=== PATIENT | female | born 1980 | race Caucasian/White ===

== ENCOUNTER 2019-10-23 19:14 | Emergency (ER) | payer OTHER, SELFPAY ==
[2019-10-23] MEDS: NALOXONE HCL INJ 2 MG/2 ML AMP IV PUSH (19:15)
[2019-10-23 19:24] VITALS: BP 121/88; PULSE 115; RESP 20; TEMP 36.1; O2SAT 100
[2019-10-23 19:29] VITALS: RESP 20
--- NOTE | 2019-10-23 19:48 | ED.OVERDOSE ---
HPI - Overdose General Chief Complaint: Overdose Stated Complaint: overdose Source: patient Mode of arrival: wheelchair Limitations: intoxication History of Present Illness HPI Narrative: this 39-year-old female was brought in unresponsive by her boyfriend who found her minimally responsive after having sniffed fentanyl. No history available from him. Upon arrrival the pt. was immediately brought to an E.D. room and administered Narcan 2 mg resulting in patient awakening and shivering. Pt. reports first use of opiates in a very long time. She was using alone, found by her boyfriend. She is unaware of how this obtained a laceration on her left forearm. No past medical history is available. Related Data Allergies Allergy/AdvReac Type Severity Reaction Status Date / Time No Known Allergies Allergy Uncoded 10/22/19 07:18 Review of Systems Constitutional: Constitutional: Denies chills and Denies fever(s) Neurologic: Denies focal weakness and Denies numbness PMFSH Past Medical History Medical History (Updated 10/24/19 @ 05:31 by Nagi Winn MD) Hepatitis C Social History Social History (Updated 10/24/19 @ 05:38 by Nagi Winn MD) Substance use: current Substance use type: marijuana and heroin Other substance usage details: regular use of marijuana, Reports rare use of heroin. Exam Const: Other: Patient shivering, curled up in a ball. HENMT: Head: normal to inspection, no contusions and no hematomas Eyes: Conjunctivae: conjunctivae normal EOM: EOMs intact bilaterally Back/Spine/Pelvis: Back: no CVA tenderness Skin: Other: Left posterior proximal forearm laceration, 4 cm, extends to but not through the muscle sheath, Neuro: General: patient oriented x3 and no focal motor deficits Speech: normal speech Gait exam (Neuro): Normal gait present Sensory Exam: normal sensation Course Course Emergency Course: Pt. remained alert and oriented throughout 3 hours of observation. Pt. did not want to wait for the remainder of her lab work; she signed out AMA. Given verbal wound care instructions and script for Narcan. Vital Signs Vital signs: Vital Signs Temperature 36.1 C L 10/23/19 19:24 Pulse Rate 115 H 10/23/19 19:24 Respiratory Rate 20 10/23/19 19:24 Blood Pressure 121/88 10/23/19 19:24 Pulse Oximetry 100 10/23/19 19:24 Temperature 36.1 C L 10/23/19 19:24 Pulse Rate 115 H 10/23/19 19:24 Respiratory Rate 16 10/23/19 23:02 Blood Pressure 121/88 10/23/19 19:24 Pulse Oximetry 100 10/23/19 23:02 Procedures Laceration Laceration 1: Date: 10/23/19 Time: 22:00 Site: upper extremity Side (If applicable): left Description: stellate and clean Depth: simple, single layer Local Anesthetic: lidocaine 1% and with epi Amount of anesthesia used (mL): 4 Pre-repair: wound explored ====== Skin Level ====== Skin layer closed with: prolene Size (cm): 3-0 Number of sutures: 11 Technique: running ====== Subcutaneous Layer ====== ====== Muscle Layer ====== ====== Tendon Layer ====== MDM - Overdose MDM Narrative Medical decision making narrative: Pt. had no intent to hurt herself, this was an accidental overdose. Differential Diagnosis Differential diagnosis: Likely suicide attempt by multiple drug overdose, poisoning by opiate or related narcotic, drug overdose, acetaminophen overdose and accidental drug ingestion Lab Data Attestation: I reviewed the patient's lab results. Result diagrams: 10/23/19 20:20 10/23/19 20:20 Labs: Lab Results 10/23/19 10/23/19 10/23/19 Range/Units 20:20 20:20 20:20 WBC 7.5 (4.8-10.8) K/mm3 RBC 4.55 (4.20-5.40) M/mm3 Hgb 15.2 H (12.0-15.0) g/dL Hct 44.5 (35.0-49.0) % MCV 97.8 (78.0-102.0) fL MCH 33.4 H (27.0-31.0) pg MCHC 34.2 (32.0-36.0) g/dL RDW 13.2 (11.6-14.
[2019-10-23] MEDS: LIDO 1%/EPINEPHRINE 1:100,000 20 ML VIAL (20:03)
[2019-10-23 20:33] LABS: Basophils Absolute Auto 0.03 K/mm3 (0.00-0.10); Basophils Percent Auto 0.4 % (0.0-1.0); Eosinophils Absolute Auto 0.19 K/mm3 (0.02-0.50); Eosinophils Percent Auto 2.5 % (1.0-6.0); Hematocrit 44.5 % (35.0-49.0); Hemoglobin 15.2 g/dL (12.0-15.0); Immature Granulocyte Absolute 0.02 K/mm3 (0.00-0.00); Immature Granulocyte Percent A 0.3 % (0.0-0.0); Lymphocytes Absolute Auto 2.03 K/mm3 (1.10-4.50); Lymphocytes Percent Auto 26.9 % (18.0-42.0); Mean Corpuscular HGB Conc 34.2 g/dL (32.0-36.0); Mean Corpuscular Hemoglobin 33.4 pg (27.0-31.0); Mean Corpuscular Volume 97.8 fL (78.0-102.0); Mean Platelet Volume 9.1 fl (9.2-11.8); Neutrophils Absolute Auto 4.7 K/mm3 (1.7-7.2); Neutrophils Percent Auto 61.9 % (50.0-70.0); Platelet Count Result 198 K/mm3 (150-420); Red Blood Count 4.55 M/mm3 (4.20-5.40); Red Cell Distribution Width 13.2 % (11.6-14.4); White Blood Count 7.5 K/mm3 (4.8-10.8)
[2019-10-23 20:49] LABS: Alanine Aminotransferase 27 U/L (14-59); Albumin Level 3.7 g/dL (3.4-5.0); Alkaline Phosphatase 59 U/L (46-116); Anion Gap 11.9 mmol/L (7-16); Aspartate Amino Transferase 26 U/L (15-37); Bilirubin,Total 0.3 mg/dL (0.00-1.00); Blood Urea Nitrogen 9 mg/dL (7-18); Calcium 9.5 mg/dL (8.5-10.1); Carbon Dioxide 28 mmol/L (21-32); Chloride 105 mmol/L (98-108); Estimated CRCL calculation 46 ml/min; Estimated Glomerular Filt Rate 47; Glucose 78 mg/dL (70-99); Osmolality Calculated 289 mOsm/kg (285-295); Potassium 3.9 mmol/L (3.5-5.1); Sodium 141 mmol/L (136-145); Total Protein 7.7 g/dL (6.4-8.2)
[2019-10-23 20:50] LABS: Acetaminophen 0 ug/mL (10-30); Ethanol < 3 mg/dL (0-6); Salicylate 1.4 mg/dL (2.8-20.0)
[2019-10-23 23:02] VITALS: RESP 16; O2SAT 100
== END 2019-10-23 21:45 | disposition left against medical advice (07) ==
LOC: CHSED 19:16
PROVIDERS: Emergency Provider Family Medicine
DX: T40.2X1A Poisoning by other opioids, accidental (unintentional), initial encounter (principal); S51.812A Laceration without foreign body of left forearm, initial encounter
CPT/HCPCS: 12002; 36415; 80053; 80307; 85025; 96374; 99283; 99284; J2310

== ENCOUNTER 2020-10-13 00:19 | Emergency (ER) | payer OTHER, SELFPAY ==
[2020-10-13 00:30] VITALS: BP 155/85; PULSE 87; RESP 20; TEMP 36.9; O2SAT 100
--- NOTE | 2020-10-13 00:36 | ED.SKABFB ---
HPI - Skin/Abscess/Foreign Bdy General Chief complaint: Skin/Abscess/Foreign Body Stated complaint: spider bite Source: patient Mode of arrival: ambulatory Limitations: no limitations History of Present Illness HPI narrative: this is a 40-year-old female presents with a insect bite to the forehead with swelling has a central punctate lesion tender with no fever chills occurred about 4 days ago and the swelling has persisted, not sure if it was a spider, no fever chills no nausea vomiting no shortness of breath no abdominal pain no nausea vomiting. MD complaint: insect bite/sting Onset (ago): day(s) Tetanus up to date: no Location: head Severity: moderate Severity scale (1-10): 6 Related Data Allergies Allergy/AdvReac Type Severity Reaction Status Date / Time No Known Allergies Allergy Uncoded 10/22/19 07:18 Review of Systems Review of Systems: All systems reviewed & are unremarkable except as noted in HPI and below PMFSH Past Medical History Medical History Hepatitis C Social History Social History Substance use: current Substance use type: marijuana and heroin Other substance usage details: regular use of marijuana, Reports rare use of heroin. Exam Const: General: no acute distress and alert Orientation/consciousness: patient oriented x3 HENMT: Head: normal to inspection Eyes: Conjunctivae: conjunctivae normal Pupils: Equal, round and reactive pupils present Neck: Neck: normal visual inspection, no lymphadenopathy and no meningeal signs Chest: Chest palpation & inspection: normal inspection of the chest Resp: Effort & Inspection: normal respiratory effort Auscultation: clear to auscultation bilaterally Cardio: Rate: regular rate Rhythm: regular rhythm GI: GI Palp: Yes Soft to palpation Percussion: Yes normal to percussion Skin: Other: Swelling to the frontal forehead with a central punctate lesion Neuro: General: patient oriented x3 and moves all extremities Extrem: General: normal to inspection and no pedal edema Psych: Mental Status: mental status grossly normal Course Course Emergency Course: patient comfortable received 800 of ibuprofen along with some Augmentin 1 dose and updated her tetanus, send medication to her pharmacy. Critical Care Time Critical Care Time Critical Care Time: No Discharge Plan Discharge Clinical Impression: Insect bites, Cellulitis Patient Disposition: Home, Self-Care Condition: Stable Instructions: Antibiotic Form, Cellulitis (ED), Insect Bite or Sting (ED) Additional Instructions: take medicine as prescribed and follow-up with primary care physician if symptoms persist or worsen. take Motrin for pain and inflammation approximately 600mg b.i.d. with meals. Prescriptions: New amoxicillin-pot clavulanate [Augmentin] 875-125 mg tablet 1 tablet PO Q12H Qty: 20 RF: 0 No Action naloxone 4 mg/actuation spray,non-aerosol 4 mg NASAL Q2-3M PRN (Reason: opioid overdose) Qty: 2 RF: 5 Follow-up/Referrals: UNKNOWN,DOCTOR [Primary Care Provider] - Time of Disposition: 00:41
[2020-10-13] MEDS: TETANUS,DIPHTHERIA,AC PERTUSSIS ADULT 0.5 ML (ADACEL) IM (00:42)
[2020-10-13] MEDS: IBUPROFEN 400 MG TABLET 800 MG PO (00:43)
[2020-10-13] MEDS: AMOXICILLIN/CLAVULANATE K 875-125 MG TAB 1 TABLET PO (00:43)
[2020-10-13 00:46] VITALS: BP 155/85; PULSE 87; RESP 20; TEMP 36.9; O2SAT 100
== END 2020-10-13 01:00 | disposition home or self-care (01) ==
PROVIDERS: Emergency Provider Emergency Medicine
DX: L03.90 Cellulitis, unspecified (principal); W57.XXXA Bitten or stung by nonvenomous insect and other nonvenomous arthropods, initial encounter
CPT/HCPCS: 90471; 90715; 99283; A9270

== ENCOUNTER 2020-12-05 08:21 | Emergency (ER) | payer OTHER, SELFPAY ==
[2020-12-05 08:25] VITALS: BP 130/95; PULSE 88; RESP 20; TEMP 36.6; O2SAT 97
--- NOTE | 2020-12-05 08:31 | ED.WOUNDLAC ---
HPI - Wound/Laceration General Chief Complaint: Skin/Abscess/Foreign Body Stated Complaint: SPIDER BITE Time Seen by Provider: 12/05/20 08:30 Source: patient Mode of arrival: ambulatory Limitations: no limitations History of Present Illness HPI narrative: Patient comes in with a area of cellulitis on her left upper lip which is the size of a quarter. She says this started getting red and warm 2 days ago. This has red tender and warm for the last two days ongoing. She is worried she got bit by a spider. She denies fever and chills. She has not tried yet tried any medicine at home. She has had mid ongoing pain at the site of the cellulitis. Related Data Allergies Allergy/AdvReac Type Severity Reaction Status Date / Time No Known Allergies Allergy Uncoded 10/22/19 07:18 Review of Systems Constitutional: Constitutional: Reports no additional constitutional complaints Eyes: Eyes: Reports no additional eye complaints ENT: Reports system reviewed and no additional complaints, except as documented Cardiovascular: Cardiovascular: Reports no additional cardiovascular complaints Respiratory: Respiratory: Reports no additional respiratory complaints Gastrointestinal: Gastrointestinal: Reports no additional gastrointestinal complaints Genitourinary: Genitourinary: Reports no additional female genitourinary complaints Musculoskeletal: Musculoskeletal: Reports no additional musculoskeletal complaints Integumentary/Breasts: Skin/Breast: Reports system reviewed and no additional complaints, except as docu Neurologic: Reports system reviewed and no additional complaints, except as documented Psychiatric: Psychiatric: Reports no additional psychiatric complaints Endocrine: Endocrine: Reports no additional endocrine complaints Hematologic/Lymphatic: Hematologic/Lymphatic: Reports no additional hematologic/lymphatic complaints Allergic/Immunologic: Allergic/Immunologic: Reports no additional allergic/immunologic complaints [facility] Past Medical History Medical History (Updated 12/05/20 @ 08:51 by Feliciano Scott MD) Depression Hepatitis C Surgical History Surgical History (Updated 12/05/20 @ 08:52 by Feliciano Scott MD) H/O wrist surgery Family History Family History (Updated 12/05/20 @ 08:52 by Feliciano Scott MD) Other No significant family history Social History Social History (Updated 12/05/20 @ 08:52 by Feliciano Scott MD) Smoking packs per day: 0.5 Smoking cigarettes per day: 10.0 Smoking status: Current every day smoker Tobacco type: cigarettes Substance use: current Substance use type: marijuana and heroin Other substance usage details: regular use of marijuana, Reports rare use of heroin. Exam Const: General: no acute distress and alert Orientation/consciousness: patient oriented x3 HENMT: Head: normal to inspection Ears: external ears normal and TM's normal bilaterally General nose exam: Normal external nose present Mouth: Yes Normal oral and palatal mucosa present Throat: posterior oropharynx normal Eyes: Conjunctivae: conjunctivae normal Neck: Neck: normal visual inspection and no lymphadenopathy Chest: Chest palpation & inspection: normal inspection of the chest Resp: Effort & Inspection: normal respiratory effort Auscultation: clear to auscultation bilaterally Cardio: Rate: regular rate Rhythm: regular rhythm GI: GI Palp: Yes Soft to palpation (nontender) Skin: General skin exam: normal color Neuro: General: patient oriented x3 and moves all extremities Extrem: General: normal to inspection Psych: Appearance: grossly normal Mental Status: mental status grossly normal Thought content: Yes Normal thought content present Course Course Emergency Course: she was examined and prescriptions were written MDM - Wound/Laceration Differential Diagnosis Differential diagnosis: Likely other (cellulitis, abscess was quickly ruled out ) Discharge Plan Discharge Cl
[2020-12-05 08:46] VITALS: BP 130/95; PULSE 88; RESP 20; TEMP 36.6; O2SAT 97
== END 2020-12-05 08:51 | disposition home or self-care (01) ==
PROVIDERS: Emergency Provider Emergency Medicine
DX: L03.211 Cellulitis of face (principal)
CPT/HCPCS: 99283

== ENCOUNTER 2021-06-06 16:17 | Emergency (ER) | payer OTHER, SELFPAY ==
[2021-06-06 16:20] VITALS: BP 130/85; PULSE 97; RESP 20; TEMP 36.9; O2SAT 97
--- NOTE | 2021-06-06 16:21 | ED.SKABFB ---
HPI - Skin/Abscess/Foreign Bdy General Chief complaint: Wound/Laceration Stated complaint: possible spider bite RT knee Source: patient and RN notes reviewed Mode of arrival: ambulatory Limitations: no limitations History of Present Illness complaint: abscess/boil Onset (ago): day(s) (3) Location: RLE ( Inferior knee) Severity: moderate Quality: burning and aching Pain Consistency: constant Relieving factors: medication Exacerbating factors: palpation and movement Context: none Associated symptoms: denies other symptoms Treatments prior to arrival: attempted to drain pus at home Related Data Allergies Allergy/AdvReac Type Severity Reaction Status Date / Time No Known Allergies Allergy Uncoded 10/22/19 07:18 Review of Systems Review of Systems: All systems reviewed & are unremarkable except as noted in HPI and below Constitutional: Constitutional: Denies chills and Denies fever(s) PMFSH Past Medical History Medical History Depression Hepatitis C Surgical History Surgical History H/O wrist surgery Family History Family History Other No significant family history Social History Social History Smoking packs per day: 0.5 Smoking cigarettes per day: 10.0 Smoking status: Current every day smoker Tobacco type: cigarettes Substance use: current Substance use type: marijuana and heroin Other substance usage details: regular use of marijuana, Reports rare use of heroin. Exam Const: General: healthy appearing, no acute distress and alert Nutritional Appearance: well nourished Orientation/consciousness: patient oriented x3 HENMT: Head: normal to inspection Ears: external ears normal Mouth: Yes moist mucous membranes Eyes: Conjunctivae: conjunctivae normal Pupils: Equal, round and reactive pupils present EOM: EOMs intact bilaterally Neck: Neck: normal visual inspection Resp: Effort & Inspection: normal respiratory effort Auscultation: clear to auscultation bilaterally Cardio: Rate: regular rate Rhythm: regular rhythm GI: GI Palp: Yes Soft to palpation and No Tenderness to palpation present (GI) Auscultation: normal bowel sounds Back/Spine/Pelvis: Cervical Spine: cervical ROM normal Thoracic/Lumbar Spine: thoraco-lumbar ROM normal Skin: General skin exam: normal color Wounds: wounds noted right anterior knee size (3 cm), drainage purulent and maciel, open and with surrounding erythema Neuro: General: patient oriented x3, moves all extremities, no meningeal signs and no focal motor deficits Speech: normal speech Gait exam (Neuro): Normal gait present Extrem: General: normal to inspection and edema right Right lower extremity: lower leg Details: erythema Location: of the proximal lower leg, of the mid lower leg and of the distal lower leg, tenderness and localized swelling Location: of the proximal lower leg, of the mid lower leg and of the distal lower leg Psych: Appearance: grossly normal and well kempt Mental Status: mental status grossly normal Affect: normal affect Attitude: cooperative Thought content: Yes Normal thought content present Discharge Plan Discharge Clinical Impression: Cellulitis of right anterior lower leg Patient Disposition: Home, Self-Care Condition: Stable Instructions: Antibiotic Form, Cellulitis (ED) Additional Instructions: Elevate leg Prescriptions: New clindamycin HCl 300 mg capsule 300 mg PO Q6H 10 Days Qty: 40 RF: 0 No Action naloxone 4 mg/actuation spray,non-aerosol 4 mg NASAL Q2-3M PRN (Reason: opioid overdose) Qty: 2 RF: 5 mupirocin 2 % ointment 1 applic topical BID Qty: 15 RF: 1 cephalexin 500 mg capsule 500 mg PO Q6H 7 Days Qty: 20 RF: 0 Follow-up/Referrals: UNKNOWN,DOCTOR [Primary Care
[2021-06-06 16:50] VITALS: BP 130/85; PULSE 97; RESP 18; TEMP 36.9; O2SAT 98
--- NOTE | 2021-06-09 09:51 | PC.NURSE ---
noted culture from right knee, dr robin reviewed results. no action needed. pt rx clindamycin 300mg q 6 hrs, 10 days , #40. attempted to call pt with no answer.
== END 2021-06-06 16:50 | disposition home or self-care (01) ==
PROVIDERS: Emergency Provider Emergency Medicine
DX: L03.115 Cellulitis of right lower limb (principal)
CPT/HCPCS: 87070; 87147; 87186; 87205; 99283

== ENCOUNTER 2022-06-11 19:05 | Emergency (ER) | payer OTHER, SELFPAY ==
--- NOTE | 2022-06-11 19:08 | ED.EXTPRO ---
HPI - Extremity Problem General Chief complaint: Skin/Abscess/Foreign Body Stated complaint: R leg is swollen Time Seen by Provider: 06/11/22 19:15 Source: patient and RN notes reviewed Mode of arrival: ambulatory Limitations: no limitations History of Present Illness HPI Narrative: patient was here 5 days ago for similar symptoms of her right lower extremity with an ulcer. I saw the patient when she was here and remember seeing her and sending a prescription to [facility] for clindamycin. She says she does not remember coming here 5 days ago she has not been to the hospital for this. She says that she is taking 2 other antibiotics that someone else gave her and she is not sure what they are. She says now her left leg is swelling as well as the right. She has multiple excoriations and old scars and ulcers on her lower extremities and her upper extremities. MD Complaint: extremity pain and extremity swelling Onset (ago): day(s) (5) Pain Consistency: constant Location: left, right and lower extremity Quality: burning, aching and dull Radiation: none Relieving factors: rest Exacerbating factors: weight bearing, walking and palpation Associated symptoms: denies other symptoms Related Data Allergies Allergy/AdvReac Type Severity Reaction Status Date / Time cephalexin Allergy Swelling Verified 06/11/22 19:35 No Known Allergies Allergy Other Uncoded 06/11/22 19:35 Review of Systems Review of Systems: All systems reviewed & are unremarkable except as noted in HPI and below Constitutional: Constitutional: Denies chills and Denies fever(s) PMFSH Past Medical History Medical History Depression Hepatitis C Surgical History Surgical History H/O wrist surgery Family History Family History Other No significant family history Social History Social History Smoking packs per day: 0.5 Smoking cigarettes per day: 10.0 Smoking status: Current every day smoker Tobacco type: cigarettes Substance use: current Substance use type: marijuana, heroin, opiates, painkillers, methamphetamine and prescription drug Other substance usage details: regular use of marijuana, Reports rare use of heroin. Exam Const: General: healthy appearing, no acute distress and alert Nutritional Appearance: well nourished Orientation/consciousness: patient oriented x3 Limitations: no limitations HENMT: Head: normal to inspection Ears: external ears normal Face/Nose/Sinus: Normal external nose present Face and sinus: normal facial exam Mouth: Yes moist mucous membranes Eyes: Conjunctivae: conjunctivae normal Pupils: Equal, round and reactive pupils present EOM: EOMs intact bilaterally Neck: Neck: normal visual inspection Resp: Effort & Inspection: normal respiratory effort Auscultation: clear to auscultation bilaterally Cardio: Rate: regular rate Rhythm: regular rhythm GI: GI Palp: Yes Soft to palpation and No Tenderness to palpation present (GI) Auscultation: normal bowel sounds Back/Spine/Pelvis: Cervical Spine: cervical ROM normal Thoracic/Lumbar Spine: thoraco-lumbar ROM normal Neuro: General: patient oriented x3, moves all extremities, no focal motor deficits and CN's II-XI intact bilaterally Speech: normal speech Gait exam (Neuro): Normal gait present Extrem: General: edema bilateral ( 2+ to the proximal lower extremities) Right lower extremity: full ROM, edema Details: pitting and 2+ and lower leg Details: erythema Location: of the proximal lower leg, of the mid lower leg and of the distal lower leg, tenderness ( soft tissue tenderness and tenderness to the posterior calf), warmth ( multiple excoriations in various stages of healing) Location: of the proximal lower leg, of the mid lower leg and of the distal lower
[2022-06-11 19:15] VITALS: BP 145/99; PULSE 99; RESP 14; TEMP 35.9
--- NOTE | 2022-06-11 19:40 | PC.NURSE ---
service desk technician comes out of pt's room to inform RN that pt is redressing and states that she does not want to be seen anymore. RN goes down to find pt dressed getting ready to leave stating that she was not seen here on 06/06 and that she will just be seen by another hospital. RN educates pt on the risks of not allowing ordered tests to be completed. Pt states that she understands and agrees to sign a paper AMA form.
== END 2022-06-11 19:48 | disposition left against medical advice (07) ==
PROVIDERS: Emergency Provider Emergency Medicine
DX: L03.90 Cellulitis, unspecified (principal); F17.210 Nicotine dependence, cigarettes, uncomplicated; F12.90 Cannabis use, unspecified, uncomplicated; F11.90 Opioid use, unspecified, uncomplicated; F15.90 Other stimulant use, unspecified, uncomplicated
CPT/HCPCS: 99281

== ENCOUNTER 2022-08-04 03:39 | Emergency (ER) | payer OTHER, SELFPAY ==
[2022-08-04 03:38] VITALS: BP 148/96; PULSE 84; RESP 16; TEMP 36.6; O2SAT 99
--- NOTE | 2022-08-04 03:54 | ED.GENADULT ---
HPI - General Adult General Chief complaint: Skin/Abscess/Foreign Body Stated complaint: Wounds on Body Source: patient Mode of arrival: ambulatory Limitations: no limitations History of Present Illness HPI narrative: Patient complains of multiple sores are body scabs for the past 8 months she has history of substance abuse with narcotics methamphetamine from review of her history. Otherwise she is eating drinking stooling and voiding fine without fever cough sore throat runny nose lumps or bumps nausea vomiting diarrhea constipation change of bowel habits blood in her stool or bleeding or bruising or any other complaints. Related Data Allergies Allergy/AdvReac Type Severity Reaction Status Date / Time cephalexin Allergy Swelling Verified 08/04/22 03:45 No Known Allergies Allergy Other Uncoded 08/02/22 14:25 Review of Systems Constitutional: Constitutional: Reports no additional constitutional complaints Eyes: Eyes: Reports no additional eye complaints ENT: Reports system reviewed and no additional complaints, except as documented Cardiovascular: Cardiovascular: Reports no additional cardiovascular complaints Respiratory: Respiratory: Reports no additional respiratory complaints Gastrointestinal: Gastrointestinal: Reports no additional gastrointestinal complaints Genitourinary: Genitourinary: Reports no additional female genitourinary complaints Musculoskeletal: Musculoskeletal: Reports no additional musculoskeletal complaints Integumentary/Breasts: Skin/Breast: Reports system reviewed and no additional complaints, except as docu, Reports as per HPI and Reports rash Neurologic: Reports system reviewed and no additional complaints, except as documented Psychiatric: Psychiatric: Reports no additional psychiatric complaints Endocrine: Endocrine: Reports no additional endocrine complaints [facility] Past Medical History Medical History Depression Hepatitis C Surgical History Surgical History H/O wrist surgery Family History Family History Other No significant family history Social History Social History Smoking packs per day: 0.5 Smoking cigarettes per day: 10.0 Smoking status: Current every day smoker Tobacco type: cigarettes Substance use: current Substance use type: marijuana, heroin, opiates, painkillers, methamphetamine and prescription drug Other substance usage details: regular use of marijuana, Reports rare use of heroin. Exam Narrative: Patient is a white female she appears in no apparent distress. Eyes conjunctiva pink sclera nonicteric oropharynx clear with moist mucous membranes neck supple no lymphadenopathy lungs are clear heart is regular rate and rhythm without murmurs gallops or rubs. Skin shows multiple scabs most her about a cm in diameter all stages of healing. Many of which are crusted over scab. Neurological she is alert and oriented x4 motor and sensory grossly intact gait is normal. Speech is normal. Course Course Emergency Course: Medical Decision Making MDM Narrative Medical decision making narrative: Patient's rash scattered scabs looks ago methamphetamine rash /dermatitis. Will treat with Bactrim DS she was given a dose here in the Emergency him in a prescription for to take twice a day for 10 days and a list of local provider she can follow-up with. She could also apply bacitracin and 1% hydrocortisone as needed for itching. If she still doing methamphetamine this will definitely be a social determinant or chronic illness that will impair her ability to heal. Discharge Plan Discharge Clinical Impression: Rash, MRSA (methicillin resistant Staphylococcus aureus) Patient Disposition: Home, Self-Care Condition: Sta
[2022-08-04] MEDS: SULFAMETHOXAZOLE/TRIMETHOPRIM 800/160 MG DS TABLET 1 TAB PO (04:00)
== END 2022-08-04 04:09 | disposition home or self-care (01) ==
PROVIDERS: Emergency Provider Emergency Medicine
DX: R21 Rash and other nonspecific skin eruption (principal); B95.62 Methicillin resistant Staphylococcus aureus infection as the cause of diseases classified elsewhere; B19.20 Unspecified viral hepatitis C without hepatic coma; F17.210 Nicotine dependence, cigarettes, uncomplicated; F15.90 Other stimulant use, unspecified, uncomplicated; F11.90 Opioid use, unspecified, uncomplicated; F12.90 Cannabis use, unspecified, uncomplicated
CPT/HCPCS: 99283; A9270

== ENCOUNTER 2022-11-30 02:11 | Emergency (ER) | payer OTHER, SELFPAY ==
[2022-11-30 02:12] VITALS: BP 160/104; PULSE 102; RESP 18; TEMP 36.5; O2SAT 100
--- NOTE | 2022-11-30 02:16 | ED.FEMALEGU ---
HPI - Female Genitourinary General Chief complaint: Urogenital-Female Stated complaint: Abdominal Pain Time Seen by Provider: 11/30/22 02:16 Source: patient and RN notes reviewed Mode of arrival: ambulatory Limitations: no limitations History of Present Illness MD elicited complaint: pelvic pain Onset (ago): day(s) (1) Location of symptoms: pelvis Severity: moderate Female Urogenital Radiation: Non-Radiating Quality of pain: cramping and dull Consistency: intermittent Vaginal discharge: none Vaginal bleeding: none Urinary symptoms: Urgency Exacerbating factors: none Relieving factors: none Associated symptoms: denies other symptoms Treatment prior to arrival: acetaminophen Patient : No Related Data Allergies Allergy/AdvReac Type Severity Reaction Status Date / Time cephalexin Allergy Swelling Verified 11/30/22 02:12 No Known Allergies Allergy Other Uncoded 08/02/22 14:25 Review of Systems Review of Systems: All systems reviewed & are unremarkable except as noted in HPI and below PMFSH Past Medical History Medical History Depression Hepatitis C Surgical History Surgical History H/O wrist surgery Family History Family History Other No significant family history Social History Social History Smoking packs per day: 0.5 Smoking cigarettes per day: 10.0 Smoking status: Current every day smoker Tobacco type: cigarettes Substance use: current Substance use type: marijuana, heroin, opiates, painkillers, methamphetamine and prescription drug Other substance usage details: regular use of marijuana, Reports rare use of heroin. Exam Const: General: healthy appearing, no acute distress and alert Nutritional Appearance: well nourished Orientation/consciousness: patient oriented x3 Limitations: no limitations Other: female nurse in room during examination. HENMT: Head: normal to inspection Ears: external ears normal Face/Nose/Sinus: Normal external nose present Face and sinus: normal facial exam Mouth: Yes moist mucous membranes Eyes: Conjunctivae: conjunctivae normal Pupils: Equal, round and reactive pupils present EOM: EOMs intact bilaterally Neck: Neck: normal visual inspection Resp: Effort & Inspection: normal respiratory effort Auscultation: clear to auscultation bilaterally Cardio: Rate: regular rate Rhythm: regular rhythm GI: GI Palp: Yes Soft to palpation, Yes Tenderness to palpation present (GI) ( moderate, Lower pelvis above symphysis pubis) and Yes Guarding due to palpation present (GI) ( mild) Auscultation: normal bowel sounds Back/Spine/Pelvis: Cervical Spine: cervical ROM normal Thoracic/Lumbar Spine: thoraco-lumbar ROM normal Skin: General skin exam: normal color Rashes: no rashes Neuro: General: patient oriented x3, moves all extremities, no focal motor deficits and CN's II-XI intact bilaterally Speech: normal speech Gait exam (Neuro): Normal gait present Extrem: General: normal to inspection and no clubbing, cyanosis or edema Psych: Appearance: grossly normal and well kempt Mental Status: mental status grossly normal Affect: normal affect Attitude: cooperative Course Vital Signs Vital signs: Vital Signs Temperature 36.5 C 11/30/22 02:12 Pulse Rate 102 H 11/30/22 02:12 Respiratory Rate 18 11/30/22 02:12 Blood Pressure 160/104 H 11/30/22 02:12 Pulse Oximetry 100 11/30/22 02:12 Oxygen Delivery Room Air 11/30/22 02:12 Temperature 36.5 C 11/30/22 02:12 Pulse Rate 91 11/30/22 03:09 Respiratory Rate 18 11/30/22 03:09 Blood Pressure 131/92 H 11/30/22 03:09 Pulse Oximetry 97 11/30/22 03:09 Oxygen Delivery Room Air 11/30/22 02:12 MDM - Female Genitourinary Differential Diagnosis Differen
[2022-11-30 02:23] LABS: Appearance Urine Slightly Cloudy (Clear); Bilirubin Urine Negative (Negative); Blood Urine 3+ (Negative); Glucose Urine UA Negative (Negative); Ketones Urine Negative (Negative); Leukocyte Esterase Ur 2+ LEU/UL (Negative); Nitrate Urine Negative (Negative); Protein Urine 2+ (Negative); Specific Grav Ur <= 1.005 (1.010-1.020); Urobilinogen Urine 0.2 mg/dL (0.2-1.0); pH Urine 6.5 (5.0-8.0)
[2022-11-30 02:30] LABS: Color Urine Light Red (Yellow)
[2022-11-30] MEDS: KETOROLAC 30 MG/ML VIAL (*BKC) IM (02:30)
[2022-11-30 02:31] LABS: Add Urine Microscopic? YES; Bacteria Urine Trace /hpf; Squamous Epithelial Cell Urine Few /hpf (Few)
[2022-11-30] MEDS: SULFAMETHOXAZOLE/TRIMETHOPRIM 800/160 MG DS TABLET 1 TAB PO (03:04)
[2022-11-30 03:09] VITALS: BP 131/92; PULSE 91; RESP 18; O2SAT 97
--- NOTE | 2022-12-02 13:20 | PC.NURSE ---
final urine culture reviewed. <10,000 single gram positive isolated. surface contamination. no change in plan of care.
== END 2022-11-30 03:10 | disposition home or self-care (01) ==
PROVIDERS: Emergency Provider Emergency Medicine
DX: N30.01 Acute cystitis with hematuria (principal); N94.6 Dysmenorrhea, unspecified
CPT/HCPCS: 81001; 87086; 87088; 96372; 99283; A9270; J1885

== ENCOUNTER 2023-12-22 19:17 | Emergency (ER) | payer MEDICAID, SELFPAY ==
[2023-12-22 19:20] VITALS: BP 154/94; PULSE 99; RESP 99; TEMP 36.6; O2SAT 100
--- NOTE | 2023-12-22 19:27 | ED.SKABFB ---
HPI - Skin/Abscess/Foreign Bdy General Chief complaint: Wound/Laceration Stated complaint: possible staph infection Time Seen by Provider: 12/22/23 19:22 Source: patient Mode of arrival: ambulatory Limitations: no limitations History of Present Illness complaint: lesion Onset (ago): month(s) (2) Location: chest, LUE, RUE and RLE Severity: moderate Relieving factors: none Exacerbating factors: none Associated symptoms: denies other symptoms Treatments prior to arrival: other (has been applying mustard) Related Data Allergies Allergy/AdvReac Type Severity Reaction Status Date / Time No Known Allergies Allergy Other Uncoded 08/02/22 14:25 Review of Systems Review of Systems: All systems reviewed & are unremarkable except as noted in HPI and below Constitutional: Constitutional: Reports as per HPI, Denies chills and Denies fever(s) Eyes: Eyes: Reports as per HPI ENT: Reports system reviewed and no additional complaints, except as documented Cardiovascular: Cardiovascular: Reports as per HPI and Denies chest pain Respiratory: Respiratory: Reports as per HPI, Denies cough and Denies dyspnea Gastrointestinal: Gastrointestinal: Reports as per HPI, Denies diarrhea, Denies nausea and Denies vomiting Genitourinary: Genitourinary: Reports no additional female genitourinary complaints Musculoskeletal: Musculoskeletal: Reports no additional musculoskeletal complaints Integumentary/Breasts: Skin/Breast: Reports system reviewed and no additional complaints, except as docu Neurologic: Reports system reviewed and no additional complaints, except as documented Endocrine: Endocrine: Reports no additional endocrine complaints Hematologic/Lymphatic: Hematologic/Lymphatic: Reports no additional hematologic/lymphatic complaints Allergic/Immunologic: Allergic/Immunologic: Reports no additional allergic/immunologic complaints [facility] Past Medical History Medical History Depression Hepatitis C Surgical History Surgical History H/O wrist surgery Family History Family History Other No significant family history Social History Social History Smoking packs per day: 0.5 Smoking cigarettes per day: 10.0 Smoking status: Current every day smoker Tobacco type: cigarettes Substance use: current Substance use type: marijuana, heroin, opiates, painkillers, methamphetamine and prescription drug Other substance usage details: regular use of marijuana, Reports rare use of heroin. Exam Const: General: healthy appearing and no acute distress Nutritional Appearance: well nourished Orientation/consciousness: patient oriented x3 Limitations: no limitations HENMT: Head: normal to inspection Ears: external ears normal Face/Nose/Sinus: Normal external nose present Face and sinus: normal facial exam Mouth: Yes Normal oral and palatal mucosa present Throat: posterior oropharynx normal Eyes: Conjunctivae: conjunctivae normal Pupils: Equal, round and reactive pupils present EOM: EOMs intact bilaterally Direct Ophthalmoscopy: no photophobia Neck: Neck: normal visual inspection and no meningeal signs Chest: Chest palpation & inspection: normal inspection of the chest Resp: Effort & Inspection: normal respiratory effort Auscultation: clear to auscultation bilaterally Cardio: Rate: regular rate Rhythm: regular rhythm GI: Inspection: non-distended Back/Spine/Pelvis: Back: no CVA tenderness Skin: Other: diffusely scattered scabbed lesions to right lower leg, both arms, right breast Neuro: General: patient oriented x3 Cranial nerves: Yes Nystagmus not present Speech: normal speech Gait exam (Neuro): Normal gait present Other: grossly intact, tremors, tweaking Extrem: General: no c
[2023-12-22] MEDS: SULFAMETHOXAZOLE/TRIMETHOPRIM 800/160 MG DS TABLET 1 TAB PO (19:46)
[2023-12-22 19:53] VITALS: BP 138/85; PULSE 87; RESP 18; TEMP 36.6; O2SAT 98
== END 2023-12-22 19:53 | disposition home or self-care (01) ==
PROVIDERS: Emergency Provider Emergency Medicine
DX: A49.02 Methicillin resistant Staphylococcus aureus infection, unspecified site (principal)
CPT/HCPCS: 99283; A9270

== ENCOUNTER 2024-07-23 15:26 | Emergency (ER) | payer OTHER, SELFPAY ==
--- NOTE | 2024-07-23 15:33 | ED.FEMALEGU ---
HPI - Female Genitourinary General Chief complaint: Urogenital-Female Stated complaint: STD EXPOSURE Time Seen by Provider: 07/23/24 15:26 Source: patient Mode of arrival: ambulatory Limitations: no limitations History of Present Illness HPI Narrative: 44 years old white female came to the ED by private car complaining of possible STD. Patient report burning urination, feeling unable to finish voiding completely, patient report having similar symptoms secondary to STD. Patient had vaginal sex With a new partner without condom 6 days ago. Patient denies any vaginal bleeding, discharge, skin rash, itching or anything abnormal externally . Related Data Allergies Allergy/AdvReac Type Severity Reaction Status Date / Time No Known Allergies Allergy Other Uncoded 07/23/24 15:57 Review of Systems Review of Systems: All systems reviewed & are unremarkable except as noted in HPI and below PMFSH Past Medical History Medical History Depression Hepatitis C Surgical History Surgical History H/O wrist surgery Family History Family History Other No significant family history Social History Social History Smoking packs per day: 0.5 Smoking cigarettes per day: 10.0 Smoking status: Current every day smoker Tobacco type: cigarettes Substance use: current Substance use type: marijuana, heroin, opiates, painkillers, methamphetamine and prescription drug Other substance usage details: regular use of marijuana, Reports rare use of heroin. Exam Narrative: General appearance: Well-developed, well-nourished Skin: Normal color H Abdomen: Soft, nontender, no organomegaly, quiet bowel sounds. Musculoskeletal: Normal range of motion, nontender back Neurologic: Alert and oriented ?3, Course Vital Signs Vital signs: Vital Signs Temperature 36.7 C 07/23/24 15:34 Pulse Rate 87 07/23/24 15:34 Respiratory Rate 18 07/23/24 15:34 Blood Pressure 144/87 H 07/23/24 15:34 Pulse Oximetry 100 07/23/24 15:34 Oxygen Delivery Room Air 07/23/24 15:34 Temperature 36.7 C 02/14/25 15:34 Pulse Rate 87 07/23/24 15:34 Respiratory Rate 18 07/23/24 15:34 Blood Pressure 144/87 H 07/23/24 15:34 Pulse Oximetry 100 07/23/24 15:34 Oxygen Delivery Room Air 07/23/24 15:34 MDM - Female Genitourinary MDM Narrative Medical decision making narrative: patient presents with burning urination, Vital signs are stable Physical examination showing No significant abnormalities Differential diagnosis include urinary tract infection, urethritis,STD Urinalysis showed no evidence of infection Urine GC chlamydia sent out patient will be treated for STD possibility, 500 mg of ceftriaxone IM given in the ED prior to discharge. Discharged on doxycycline and Flagyl. The pt was discharged to home.the pt,s condition upon discharge was fair,education was provided to the pt in reference to the final impression,discharge study results,treatment,prognosis and need for follow up . Differential Diagnosis Differential diagnosis: Likely urinary tract infection, bacterial vaginosis, trichomoniasis, cervicitis, vaginitis and cystitis Medical Records Attestation: I reviewed the patient's medical records. Lab Data Attestation: I reviewed the patient's lab results. Labs: Lab Results 07/23/24 Range/Units 15:27 Urine Color Light yellow (Yellow) Urine Appearance Clear (Clear) Urine pH 8.0 (5.0-8.0) Ur Specific [place] 1.020 (1.010-1.020) Urine Protein Negative (Negative) Urine Glucose (UA) Negative (Negative) Urine Ketones Negative (Negative) Ur Blood (Man) Negative (Negative) Urine Nitrate Negative (Negative) Urine Bilirubin Negative (Negative) Urine Urobilinogen 0.2 (0.2-1.0) mg/dL Leukocyte Esterase Rfl Negative (Negative) ESTEVAN/UL C. trachomatis (PCR) Pending N. gonorrhoeae (PCR) Pending T. vaginalis (PCR) Pending Critical Care Time Critical Care Time Critical Care Time: No Discharge Plan Discharge Clinical Impression: Concern about STD in female without diagnosis Patient Disposition: Home, Self-Care Condition: Stable Instructions: Antibiotic Form, Safe Sex Practices for Adolescents (ED) Additional Instructions: Return if symptoms are worsening , call your family physician for appointment, take Tylenol , ibuprofen as as needed for aches and pain, continue home medications. Patient Language: Maltese Prescriptions: New doxycycline hyclate 100 mg capsule 100 mg PO BID Qty: 20 0RF metronidazole 500 mg tablet 500 mg PO Q12H Qty: 14 0RF Follow-up/Referrals: UNKNOWN,DOCTOR [Primary Care Provider] -
[2024-07-23 15:34] VITALS: BP 144/87; PULSE 87; RESP 18; TEMP 36.7; O2SAT 100
[2024-07-23 15:56] LABS: Add Urine Microscopic? NO; Appearance Urine Clear (Clear); Bilirubin Urine Negative (Negative); Blood Urine Negative (Negative); Color Urine Light Yellow (Yellow); Glucose Urine UA Negative (Negative); Ketones Urine Negative (Negative); Leukocyte Esterase Ur Negative LEU/UL (Negative); Nitrate Urine Negative (Negative); Protein Urine Negative (Negative); Urobilinogen Urine 0.2 mg/dL (0.2-1.0)
[2024-07-23] MEDS: cefTRIAXone 1 GM VIAL 0.5 GM IM (16:43)
[2024-07-23 16:57] VITALS: BP 129/87; PULSE 90; RESP 16; TEMP 36.6; O2SAT 100
[2024-07-26 07:37] LABS: Trichomonas Vag PCR NOT DETECTED (NOT DETECTE)
[2024-07-26 07:59] LABS: Chlamydia trachomatis NOT DETECTED (NOT DETECTE); Neisseria gonorrhoeae PCR NOT DETECTED (NOT DETECTE)
== END 2024-07-23 16:55 | disposition home or self-care (01) ==
PROVIDERS: Emergency Provider Emergency Medicine
DX: R30.0 Dysuria (principal); F17.210 Nicotine dependence, cigarettes, uncomplicated; Z11.3 Encounter for screening for infections with a predominantly sexual mode of transmission
CPT/HCPCS: 81003; 87491; 87591; 87661; 96372; 99284; J0696

== ENCOUNTER 2024-08-09 19:21 | Emergency (ER) | payer OTHER, SELFPAY ==
[2024-08-09 19:25] VITALS: O2SAT 98
[2024-08-09 19:26] VITALS: BP 137/99; PULSE 127; RESP 18; TEMP 36.6; O2SAT 98
--- NOTE | 2024-08-09 19:33 | ED.GENADULT ---
HPI - General Adult General Chief complaint: Upper Respiratory Infection Stated complaint: upper respiratory Time Seen by Provider: 08/09/24 19:24 History of Present Illness HPI narrative: Meseret is a 44F with a PMH of migraines, and hep C that presented to the ED not feeling well. She has been fatigued with a cough, congestion, and body aches as well as some mild dyspnea for the last few days. She did have nausea and vomiting for the first couple days but that has resolved. No CP, severe dyspnea, or syncope. Related Data Allergies Allergy/AdvReac Type Severity Reaction Status Date / Time No Known Allergies Allergy Other Uncoded 07/23/24 15:57 Review of Systems Review of Systems: All systems reviewed & are unremarkable except as noted in HPI and below PMFSH Past Medical History Medical History Depression Hepatitis C Surgical History Surgical History H/O wrist surgery Family History Family History Other No significant family history Social History Social History Smoking packs per day: 0.5 Smoking cigarettes per day: 10.0 Smoking status: Current every day smoker Tobacco type: cigarettes Substance use: current Substance use type: marijuana, heroin, opiates, painkillers, methamphetamine and prescription drug Other substance usage details: regular use of marijuana, Reports rare use of heroin. Exam Const: General: cooperative, healthy appearing, comfortable, no acute distress, well developed, alert, awake and Physically active Orientation/consciousness: oriented to person, oriented to place and oriented to time HENMT: Head: normal to inspection, normocephalic and atraumatic Ears: hearing grossly normal bilaterally and external ears normal Face/Nose/Sinus: Normal external nose present Eyes: General: appearance normal, both eyes and all related structures Periorbital: periorbital findings normal Sclera: sclerae normal Pupils: Equal, round and reactive pupils present Neck: Neck: normal visual inspection Chest: Chest palpation & inspection: normal inspection of the chest Resp: Effort & Inspection: normal respiratory effort, able to speak in complete sentences and no respiratory distress Other: crackles throughout all lung paredes Cardio: Jugular venous distension: no JVD Rate: regular rate Rhythm: regular rhythm GI: Inspection: normal to inspection GI Palp: Yes Soft to palpation Auscultation: normal bowel sounds Skin: General skin exam: normal color and no rashes or lesions noted Other: scarring on distal upper extremities bilaterally Neuro: General: oriented to person, oriented to place and oriented to time Cranial nerves: Yes Equal, round and reactive pupils present Extrem: General: normal to inspection Course Course Emergency Course: EKG showed sinus tachycardia at 14. Labs showed leukocytosis, hypokalemia and stable CKD. Positive for influenza A. She was given supplemental potassium and magnesium. CHEST RADIOGRAPH CLINICAL HISTORY: cough . COMPARISON: 03/07/2019 TECHNIQUE: Single portable view of the chest. FINDINGS The cardiomediastinal silhouette is partially obscured. Opacification of the right middle lobe is identified. The remainder of the lungs are clear. IMPRESSION: Right middle lobe infiltrate Ordered Tamiflu and Levofloxacin. CURB 65 score of 0. Will plan to treat outpatient with Tamiflu, Augmentin and azithromycin. Vital Signs Vital signs: Vital Signs Pulse Oximetry 98 08/09/24 19:25 Oxygen Delivery Room Air 08/09/24 19:25 Temperature 97.8 F 08/09/24 19:26 Pulse Rate 101 H 08/09/24 20:28 Respiratory Rate 20 08/09/24 20:28 Blood Pressure 103/68 08/09/24 20:28 Pulse Oximetry 96 08/09/24 20:28 Oxygen Delivery Room Air 08/09/24 20:28 Medical Decision Making Vital Signs Vital Signs: Vital Signs Pulse Oximetry 98 08/09/24 19:25 Oxygen Delivery Room Air 08/09/24 19:25 Temperature 97.8 F 08/09/24 19:26 Pulse Rate 101 H 08/09/24 20:28 Respiratory Rate 20 08/09/24 20:28 Blood Pressure 103/68 08/09/24 20:28 Pulse Oximetry 96 08/09/24 20:28 Oxygen Delivery Room Air 08/09/24 20:28 Lab Data 08/09/24 19:51 08/09/24 19:51 Labs: Lab Results 08/09/24 08/09/24 Range/Units 19:26 19:51 WBC 19.3 H (4.8-10.8) K/mm3 RBC 4.30 (4.20-5.40) M/mm3 Hgb 13.2 (12.0-15.0) g/dL Hct 37.8 (35.0-49.0) % MCV 87.9 (78.0-102.0) fL MCH 30.7 (27.0-31.0) pg MCHC 34.9 (32-36) g/dL RDW 13.0 (11.6-14.4) % Plt Count 180 (150-420) K/mm3 MPV 9.0 L (9.2-11.8) fl Immature Gran % (Auto) 0.6 H (0.0-0.0) % Neut % (Auto) 90.9 H (50.0-70.0) % Lymph % (Auto) 5.3 L (18.0-42.0) % [place] % (Auto) 3.0 (2.0-11.0) % Eos % (Auto) 0.0 L (1.0-6.0) % Baso % (Auto) 0.2 (0.0-1.0) % Lymph # (Auto) 1.02 L (1.10-4.50) K/mm3 [place] # (Auto) 0.58 (0.10-0.90) K/mm3 Eos # (Auto) 0.00 L (0.02-0.50) K/mm3 Baso # (Auto) 0.03 (0.00-0.10) K/mm3 Abs Immat Gran (auto) 0.12 H (0.00-0.00) K/mm3 Absolute Neuts (auto) 17.57 H (1.70-7.20) K/mm3 Absolute Nucleated RBC 0.00 (0.00-0.00) K/mm3 Nucleated RBC % 0.0 (0-0.0) % Sodium 136 (136-145) mmol/L Potassium 3.0 L (3.5-5.1) mmol/L Chloride 98 (98-108) mmol/L Carbon Dioxide 26 (21-32) mmol/L Anion Gap 12 (4-12) mmol/L BUN 16 (7-18) mg/dL Creatinine 1.32 H (0.55-1.02) mg/dL Estim Creat Clear Calc 49 ml/min Estimated GFR 44 L (59 - ) Glucose 170 H (70-99) mg/dL Calculated Osmolality 287 (285-295) mOsm/kg Calcium 8.6 (8.5-10.1) mg/dL Magnesium 1.7 L (1.8-2.4) mg/dL Total Bilirubin 0.6 (0.00-1.00) mg/dL AST 10 L (15-37) U/L ALT 9 L (14-59) U/L Alkaline Phosphatase 81 (46-116) U/L Total Protein 7.3 (6.4-8.2) g/dL Albumin 2.7 L (3.4-5.0) g/dL Influenza A (RT-PCR) Positive A (Negative) Influenza B (RT-PCR) Negative (Negative) RSV (RT-PCR) Negative (Negative) SARS-CoV-2 RNA (RT-PCR) Negative (Negative) Discharge Plan Discharge Clinical Impression: Pneumonia, Influenza Patient Disposition: Home, Self-Care Condition: Stable Additional Instructions: Please follow up with your regular doctor. Return to the emergency department for any new, concerning or worsening symptoms. Patient Language: Maltese Prescriptions: New amoxicillin-pot clavulanate 875-125 mg tablet 1 tablet PO Q12H Qty: 8 0RF azithromycin 500 mg tablet 500 mg PO DAILY 14 Days Qty: 4 0RF oseltamivir [Tamiflu] 30 mg capsule 30 mg PO BID 5 Days Qty: 10 0RF albuterol sulfate [Ventolin HFA] 90 mcg/actuation HFA aerosol inhaler 2 puff inhalation QID Qty: 8.5 0RF No Action doxycycline hyclate 100 mg capsule 100 mg PO BID Qty: 20 0RF metronidazole 500 mg tablet 500 mg PO Q12H Qty: 14 0RF Follow-up/Referrals: UNKNOWN,DOCTOR [Primary Care Provider] -
[2024-08-09] MEDS: ALBUTEROL SULFATE (*SP) INHALER 2 PUFF INHALATION (19:39)
[2024-08-09 19:58] LABS: Basophils Absolute Auto 0.03 K/mm3 (0.00-0.10); Basophils Percent Auto 0.2 % (0.0-1.0); Hematocrit 37.8 % (35.0-49.0); Hemoglobin 13.2 g/dL (12.0-15.0); Immature Granulocyte Absolute 0.12 K/mm3 (0.00-0.00); Immature Granulocyte Percent A 0.6 % (0.0-0.0); Lymphocytes Absolute Auto 1.02 K/mm3 (1.10-4.50); Lymphocytes Percent Auto 5.3 % (18.0-42.0); Mean Corpuscular HGB Conc 34.9 g/dL (32-36); Mean Corpuscular Hemoglobin 30.7 pg (27.0-31.0); Mean Corpuscular Volume 87.9 fL (78.0-102.0); Monocytes Absolute Auto 0.58 K/mm3 (0.10-0.90); Neutrophils Absolute Auto 17.57 K/mm3 (1.70-7.20); Neutrophils Percent Auto 90.9 % (50.0-70.0); Platelet Count Result 180 K/mm3 (150-420); White Blood Count 19.3 K/mm3 (4.8-10.8)
[2024-08-09 20:06] LABS: SARS-CoV-2 RNA PCR Negative (Negative)
[2024-08-09 20:07] LABS: Influenza A QL RT-PCR Positive (Negative); Influenza B QL RT-PCR Negative (Negative); RSV RNA, RT-PCR Negative (Negative)
[2024-08-09 20:13] LABS: Alanine Aminotransferase 9 U/L (14-59); Albumin Level 2.7 g/dL (3.4-5.0); Alkaline Phosphatase 81 U/L (46-116); Anion Gap 12 mmol/L (4-12); Aspartate Amino Transferase 10 U/L (15-37); Bilirubin,Total 0.6 mg/dL (0.00-1.00); Blood Urea Nitrogen 16 mg/dL (7-18); Calcium 8.6 mg/dL (8.5-10.1); Carbon Dioxide 26 mmol/L (21-32); Chloride 98 mmol/L (98-108); Estimated CRCL calculation 49 ml/min; Estimated Glomerular Filt Rate 44; Glucose 170 mg/dL (70-99); Magnesium 1.7 mg/dL (1.8-2.4); Osmolality Calculated 287 mOsm/kg (285-295); Sodium 136 mmol/L (136-145); Total Protein 7.3 g/dL (6.4-8.2)
--- NOTE | 2024-08-09 20:25 | PC.NURSE ---
Pt being given po meds as per her request. She states she is a very hard IV stick and will most likely need U/S to get an IV started, she states she would rather be given po meds. Pt drinking cup of water and tolerating well.
[2024-08-09 20:28] VITALS: BP 103/68; PULSE 101; RESP 20; O2SAT 96
[2024-08-09] MEDS: KETOROLAC 30 MG/ML VIAL (*BKC) 15 MG IM (20:41)
[2024-08-09] MEDS: OSELTAMIVIR PHOSPHATE 75 MG CAPSULE PO (20:41)
[2024-08-09] MEDS: POTASSIUM CHLORIDE 20 MEQ ER TABLET 40 MEQ PO (20:41)
[2024-08-09] MEDS: levoFLOXacin TAB 500 MG, levoFLOXacin TAB 250 MG 750 MG PO (20:42)
[2024-08-09 21:08] VITALS: BP 118/79; PULSE 98; RESP 20; TEMP 37; O2SAT 97
== END 2024-08-09 21:08 | disposition home or self-care (01) ==
PROVIDERS: Emergency Provider Family Medicine
DX: J18.9 Pneumonia, unspecified organism (principal); J11.1 Influenza due to unidentified influenza virus with other respiratory manifestations; F17.210 Nicotine dependence, cigarettes, uncomplicated; Z20.822 Contact with and (suspected) exposure to COVID-19
CPT/HCPCS: 36415; 71045; 80053; 83735; 85025; 87637; 93005; 96372; 99283; A9270; J1885

== ENCOUNTER 2024-10-31 13:17 | Emergency (ER) | payer OTHER, SELFPAY ==
--- OUTSIDE RECORDS SUMMARY | 2024-10-31 13:22 | XMS_ITS | Clinical Summary ---
Author Organization [email or web address] Address [address] [place] [address] Care Team Providers Care Varnishing Unit Operator Name Role Phone Unavailable Primary Care Provider Unavailabl e Source Comments [email or web address],non-owned Affiliates and Associated Physician Practices is amultiple site organization consisting of ambulatory clinics and hospital sitesin [place], [place], [place] and [place]. This disclosure is being madepursuant to the Care Everywhere program and may not contain all information available regarding this patient. Last updated 18.[email or web address] Active Problems Patient Care Coordination No te Formatting of this note migh t be different from the original. 'S OFFICE UNWILLING TO SEND FULL RECORDS PER MARCE GAUTHIER FROM DR DING'S OFFICE No additional problems on file Social History Tobacco Use Types Packs/Day Years Used Date Smoking Tobacco: Never Assessed Comments Unknown Sex and Gender Information Value Date Recorded Sex Assigned at Not on file Legal Sex Female 1:59 PM CDT Gender Identity Not on file Sexual Orientation Not on file Plan of Treatment Health Maintenance Due Date Last Done Comments LIPID TESTING 1982 MAMMOGRAM 1982 HIV SCREENING 1997 HEPATITIS C SCREENING 01/06/2000 DTAP/TDAP/TD VACCINES (1 - Tdap) 2001 HEPATITIS B VACCINE (1 of 3 - 19+ 3-dose series) 2001 COVID-19 VACCINE (2023-2 5 season) 2024 DEPRESSION SCREENING 06/09/2024 INFLUENZA VACCINE (Season Ended) 2025 ZOSTER VACCINE (1 of 2) 01/11/2032 HIB VACCINE Aged Out No longer eligi ble based on patient's age to complete this topic HPV VACCINE Aged Out No longer eligi ble based on patient's age to complete this topic MENINGOCOCCAL (Group B) VACC INE SHARED DECISION-MAKING Aged Out No longer eligibl e based on patient's age to complete this topic MENINGOCOCCAL GROUPS A/C/Y/W VACCINE Aged Out No longer eligible b ased on patient's age to complete this topic PNEUMOCOCCAL VACCINE Aged Out No long er eligible based on patient's age to complete this topic Insurance
[2024-10-31 13:24] VITALS: BP 141/100; PULSE 98; RESP 16; TEMP 36.6; O2SAT 100
--- NOTE | 2024-10-31 13:26 | ED.SKABFB ---
HPI - Skin/Abscess/Foreign Bdy General Chief complaint: Skin/Abscess/Foreign Body Stated complaint: insect bite Time Seen by Provider: 10/31/24 13:25 Source: patient Mode of arrival: ambulatory Limitations: no limitations History of Present Illness HPI narrative: Patient is a 44-year-old female with a right posterior neck hairline infection that was from a spider 5 days ago per history. She says she found 2 spiders on her over the past week. She is having pain and tenderness at this site of infection. complaint: rash and insect bite/sting Onset (ago): day(s) ( Five) Location: neck ( occipital posterior neck right side at the hairline but into the hair) Severity: moderate Severity scale (1-10): 5 Quality: burning and sharp Pain Consistency: constant Relieving factors: none Exacerbating factors: palpation Context: other ( patient has right posterior scalp hairline infection possibly from a spider bite over the past 5 days.) Associated symptoms: denies other symptoms Treatments prior to arrival: attempted to drain pus at home Related Data Allergies Allergy/AdvReac Type Severity Reaction Status Date / Time No Known Allergies Allergy Other Uncoded 10/31/24 13:27 Review of Systems Review of Systems: All systems reviewed & are unremarkable except as noted in HPI and below Constitutional: Constitutional: Reports no additional constitutional complaints Eyes: Eyes: Reports no additional eye complaints ENT: Reports system reviewed and no additional complaints, except as documented Cardiovascular: Cardiovascular: Reports no additional cardiovascular complaints Respiratory: Respiratory: Reports no additional respiratory complaints Gastrointestinal: Gastrointestinal: Reports no additional gastrointestinal complaints Genitourinary: Genitourinary: Reports no additional female genitourinary complaints Musculoskeletal: Musculoskeletal: Reports no additional musculoskeletal complaints Integumentary/Breasts: Skin/Breast: Reports system reviewed and no additional complaints, except as docu Neurologic: Reports system reviewed and no additional complaints, except as documented Psychiatric: Psychiatric: Reports no additional psychiatric complaints Endocrine: Endocrine: Reports no additional endocrine complaints Hematologic/Lymphatic: Hematologic/Lymphatic: Reports no additional hematologic/lymphatic complaints Allergic/Immunologic: Allergic/Immunologic: Reports no additional allergic/immunologic complaints PMFSH Past Medical History Medical History Depression Hepatitis C Surgical History Surgical History H/O wrist surgery Family History Family History Other No significant family history Social History Social History Smoking packs per day: 0.5 Smoking cigarettes per day: 10.0 Smoking status: Current every day smoker Tobacco type: cigarettes Substance use: current Substance use type: marijuana, heroin, opiates, painkillers, methamphetamine and prescription drug Other substance usage details: regular use of marijuana, Reports rare use of heroin. Exam Const: General: healthy appearing Nutritional Appearance: well nourished Orientation/consciousness: patient oriented x3 HENMT: Head: normal to inspection Ears: external ears normal Face/Nose/Sinus: Normal external nose present Eyes: Conjunctivae: conjunctivae normal Pupils: Equal, round and reactive pupils present EOM: EOMs intact bilaterally Neck: Neck: normal visual inspection Chest: Chest palpation & inspection: normal inspection of the chest Resp: Effort & Inspection: normal respiratory effort and not labored Auscultation: clear to auscultation bilaterally and no crackles Cardio: Rate: regular rate Rhythm: regular rhythm Heart sounds: no murmurs GI: Inspection: non-distended GI Palp: Yes Soft to palpation and No Tenderness to palpation present (GI) : General: Yes bladder normal to palpation Back/Spine/Pelvis: Back: no CVA tenderness Skin: General skin exam: normal color Rashes: rash noted Wounds: no wounds Other: Right posterior scalp at the hairline into the hair at the neck has a hardened area of cellulitis / folliculitis without definite abscess formation at this time; thickened skin from the infection present but no abscess; there is a opening at the center without pus Neuro: General: patient oriented x3 Cranial nerves: Yes Nystagmus not present Speech: normal speech Extrem: General: normal to inspection Psych: Mental Status: mental status grossly normal Affect: normal affect Attitude: cooperative Course Vital Signs Vital signs: Vital Signs Temperature 36.6 C 10/31/24 13:24 Pulse Rate 98 10/31/24 13:24 Respiratory Rate 16 10/31/24 13:24 Blood Pressure 141/100 H 10/31/24 13:24 Pulse Oximetry 100 10/31/24 13:24 Oxygen Delivery Room Air 10/31/24 13:24 Temperature 36.6 C 10/31/24 13:24 Pulse Rate 98 10/31/24 13:24 Respiratory Rate 16 10/31/24 13:24 Blood Pressure 141/100 H 10/31/24 13:24 Pulse Oximetry 100 10/31/24 13:24 Oxygen Delivery Room Air 10/31/24 13:24 MDM - Skin/Abscess/Foreign Bdy MDM Narrative Medical decision making narrative: patient is a 44-year-old female with a right scalp skin infection over the past 5 days. She felt this was a spider bite. We will treat accordingly. Discharge Plan Discharge Clinical Impression: Folliculitis Cellulitis Qualifiers: Site of cellulitis: neck Qualified Code(s): L03.221 - Cellulitis of neck Patient Disposition: Home Condition: Stable Instructions: Antibiotic Form, Cellulitis (ED), Folliculitis (ED) Patient Language: [place] Prescriptions: New amoxicillin-pot clavulanate 875-125 mg tablet 1 tablet PO BID 10 Days Qty: 20 0RF tramadol 50 mg tablet 50 mg PO Q8H PRN (Reason: pain) Qty: 20 0RF Rx Instructions: 1=2 tabs per dose No Action albuterol sulfate [Ventolin HFA] 90 mcg/actuation HFA aerosol inhaler 2 puff inhalation QID Qty: 8.5 0RF Follow-up/Referrals: UNKNOWN,DOCTOR [Primary Care Provider] - Time of Disposition: 13:40
[2024-10-31] MEDS: AMOXICILLIN/CLAVULANATE K 875-125 MG TAB 1 TABLET PO (13:45)
--- OUTSIDE RECORDS SUMMARY | 2024-10-31 13:45 | XMS_ITS | Clinical Summary ---
Author Organization [facility] Address [address] [place] [address] Care Team Providers Care Property Technician Name Role Phone Unavailable Primary Care Provider Unavailabl e Source Comments [facility],non-owned Affiliates and Associated Physician Practices is amultiple site organization consisting of ambulatory clinics and hospital sitesin [place], [place], [place] and [place]. This disclosure is being madepursuant to the Care Everywhere program and may not contain all information available regarding this patient. Last updated 18.[facility] Active Problems Patient Care Coordination No te [...]
== END 2024-10-31 13:51 | disposition home or self-care (01) ==
PROVIDERS: Emergency Provider Emergency Medicine; PCP Family Medicine
DX: L03.221 Cellulitis of neck (principal); L73.9 Follicular disorder, unspecified; F17.210 Nicotine dependence, cigarettes, uncomplicated
CPT/HCPCS: 99283; A9270

== ENCOUNTER 2024-11-29 01:38 | Emergency (ER) | payer OTHER, SELFPAY ==
[2024-11-29 01:42] VITALS: BP 142/77; PULSE 92; RESP 20; TEMP 36.6; O2SAT 98
--- NOTE | 2024-11-29 01:46 | ED.GENADULT ---
HPI - General Adult General Chief complaint: Extremity Injury, Upper Stated complaint: cellulitis of hand Time Seen by Provider: 11/29/24 01:42 History of Present Illness HPI narrative: Meseret is a 44F with a PMH of Hep C, MRSA and cellulitis presented to the ED with pain and swelling in the left hand. It started 3 days ago but became much worse in the last day. It also became warm, red and more tender. No fevers, chills, or systemic symptoms. Related Data Allergies Allergy/AdvReac Type Severity Reaction Status Date / Time No Known Allergies Allergy Other Uncoded 11/29/24 01:49 Review of Systems Review of Systems: All systems reviewed & are unremarkable except as noted in HPI and below PMFSH Past Medical History Medical History Depression Hepatitis C Surgical History Surgical History H/O wrist surgery Family History Family History Other No significant family history Social History Social History Smoking packs per day: 0.5 Smoking cigarettes per day: 10.0 Smoking status: Current every day smoker Tobacco type: cigarettes Substance use: current Substance use type: marijuana, heroin, opiates, painkillers, methamphetamine and prescription drug Other substance usage details: regular use of marijuana, Reports rare use of heroin. Exam Const: General: cooperative, healthy appearing, comfortable, no acute distress, well developed, alert, awake and Physically active Orientation/consciousness: oriented to person, oriented to place and oriented to time HENMT: Head: normal to inspection, normocephalic and atraumatic Ears: hearing grossly normal bilaterally and external ears normal Face/Nose/Sinus: Normal external nose present Eyes: General: appearance normal, both eyes and all related structures Periorbital: periorbital findings normal Sclera: sclerae normal Pupils: Equal, round and reactive pupils present Neck: Neck: normal visual inspection Chest: Chest palpation & inspection: normal inspection of the chest Resp: Effort & Inspection: normal respiratory effort, able to speak in complete sentences and no respiratory distress Cardio: Jugular venous distension: no JVD Skin: Other: Left hand was swollen, erythematous, warm and TTP. Both scars had extensive scar tissue. Neuro: General: oriented to person, oriented to place and oriented to time Cranial nerves: Yes Equal, round and reactive pupils present Extrem: General: normal to inspection Course Vital Signs Vital signs: Vital Signs Temperature 97.9 F 11/29/24 01:42 Pulse Rate 92 11/29/24 01:42 Respiratory Rate 20 11/29/24 01:42 Blood Pressure 142/77 H 11/29/24 01:42 Pulse Oximetry 98 11/29/24 01:42 Oxygen Delivery Room Air 11/29/24 01:42 Temperature 97.9 F 11/29/24 01:42 Pulse Rate 92 11/29/24 01:42 Respiratory Rate 20 11/29/24 01:42 Blood Pressure 142/77 H 11/29/24 01:42 Pulse Oximetry 98 11/29/24 01:42 Oxygen Delivery Room Air 11/29/24 01:42 Medical Decision Making Vital Signs Vital Signs: Vital Signs Temperature 97.9 F 11/29/24 01:42 Pulse Rate 92 11/29/24 01:42 Respiratory Rate 20 11/29/24 01:42 Blood Pressure 142/77 H 11/29/24 01:42 Pulse Oximetry 98 11/29/24 01:42 Oxygen Delivery Room Air 11/29/24 01:42 Temperature 97.9 F 11/29/24 01:42 Pulse Rate 92 11/29/24 01:42 Respiratory Rate 20 11/29/24 01:42 Blood Pressure 142/77 H 11/29/24 01:42 Pulse Oximetry 98 11/29/24 01:42 Oxygen Delivery Room Air 11/29/24 01:42 Discharge Plan Discharge Clinical Impression: Cellulitis Patient Disposition: Home Condition: Stable Instructions: Antibiotic Form Patient Language: Turkmen Prescriptions: New clindamycin HCl [Cleocin HCl] 150 mg capsule 450 mg PO TID 5 Days Qty: 45 0RF meloxicam 15 mg tablet 15 mg PO DAILY Qty: 10 0RF Follow-up/Referrals: Westley Soto MD [Primary Care Provider] -
[2024-11-29] MEDS: KETOROLAC 30 MG/ML VIAL (*BKC) IM (01:54)
[2024-11-29] MEDS: CLINDAMYCIN HCL 150 MG CAP 450 MG PO (01:54)
== END 2024-11-29 02:07 | disposition home or self-care (01) ==
LOC: CHSED 01:51
PROVIDERS: Emergency Provider Family Medicine; PCP Family Medicine
DX: L03.114 Cellulitis of left upper limb (principal); F17.210 Nicotine dependence, cigarettes, uncomplicated
CPT/HCPCS: 96372; 99283; J1885

== ENCOUNTER 2025-03-07 09:46 | Emergency (ER) | payer OTHER, SELFPAY ==
[2025-03-07 09:46] VITALS: BP 142/97; PULSE 88; RESP 18; TEMP 36.6; O2SAT 100
--- NOTE | 2025-03-07 09:53 | ED.WOUNDLAC ---
HPI - Wound/Laceration General Chief Complaint: Wound/Laceration Stated Complaint: sore on left side of head, pt. states spider bite Time Seen by Provider: 03/07/25 09:50 Source: patient Mode of arrival: ambulatory Limitations: no limitations History of Present Illness HPI narrative: Patient is a 45-year-old female with a left scalp insect/spider bite in the past 3 days with a left scalp irritation. She has pain on left scalp area. She has been cleaning out the garage and felt like she got a spider bite on this area. Onset (ago): day(s) (Three) Location: scalp (Left parietal region) Place: home and outdoors Patient tetanus UTD: Yes Context: other (Patient has a left scalp lesion for the past 3 days after working in the garage and a possible insect/spider bite to this area) Associated symptoms: pain Treatments prior to arrival: NSAIDS Related Data Allergies Allergy/AdvReac Type Severity Reaction Status Date / Time No Known Allergies Allergy Verified 03/07/25 09:50 Review of Systems Review of Systems: All systems reviewed & are unremarkable except as noted in HPI and below Constitutional: Constitutional: Reports no additional constitutional complaints Eyes: Eyes: Reports no additional eye complaints ENT: Reports system reviewed and no additional complaints, except as documented Cardiovascular: Cardiovascular: Reports no additional cardiovascular complaints Respiratory: Respiratory: Reports no additional respiratory complaints Gastrointestinal: Gastrointestinal: Reports no additional gastrointestinal complaints Genitourinary: Genitourinary: Reports no additional female genitourinary complaints Musculoskeletal: Musculoskeletal: Reports no additional musculoskeletal complaints Integumentary/Breasts: Skin/Breast: Reports system reviewed and no additional complaints, except as docu Neurologic: Reports system reviewed and no additional complaints, except as documented Psychiatric: Psychiatric: Reports no additional psychiatric complaints Endocrine: Endocrine: Reports no additional endocrine complaints Hematologic/Lymphatic: Hematologic/Lymphatic: Reports no additional hematologic/lymphatic complaints Allergic/Immunologic: Allergic/Immunologic: Reports no additional allergic/immunologic complaints PMFSH Past Medical History Medical History Depression Hepatitis C Surgical History Surgical History H/O wrist surgery Family History Family History Other No significant family history Social History Social History Smoking packs per day: 0.5 Smoking cigarettes per day: 10.0 Smoking status: Current every day smoker Tobacco type: cigarettes Substance use: current Substance use type: marijuana, heroin, opiates, painkillers, methamphetamine and prescription drug Other substance usage details: regular use of marijuana, Reports rare use of heroin. Exam Const: General: healthy appearing Nutritional Appearance: well nourished Orientation/consciousness: patient oriented x3 Other: Patient has baseline disheveled appearance and a history of opioid abuse by injection; patient at her baseline according to nurses HENMT: Head: normal to inspection Ears: external ears normal Face/Nose/Sinus: Normal external nose present Eyes: Conjunctivae: conjunctivae normal Pupils: Equal, round and reactive pupils present EOM: EOMs intact bilaterally Neck: Neck: normal visual inspection Chest: Chest palpation & inspection: normal inspection of the chest Resp: Effort & Inspection: normal respiratory effort and not labored Auscultation: clear to auscultation bilaterally and no crackles Cardio: Rate: regular rate Rhythm: regular rhythm Heart sounds: no murmurs GI: Inspection: non-distended GI Palp: Yes Soft to palpation and No Tenderness to palpation present (GI) Auscultation: normal bowel sounds Back/Spine/Pelvis: Back: no CVA tenderness Skin: General skin exam: normal color Rashes: no rashes Wounds: no wounds Other: Left scalp parietal region has a central white head pustule appearance with a localized erythema/redness around that area of 1.5 cm; no abscess Neuro: General: patient oriented x3, moves all extremities and no meningeal signs Extrem: General: normal to inspection Psych: Mental Status: mental status grossly normal Affect: normal affect Attitude: cooperative MDM - Wound/Laceration MDM Narrative Medical decision making narrative: Patient is a 45-year-old female with a left scalp pustule and erythema locally after a spider bite according to the patient. Augmentin. Tetanus up-to-date. Discharge Plan Discharge Clinical Impression: Infected insect bite of scalp Qualifiers: Encounter type: initial encounter Qualified Code(s): S00.06XA - Insect bite (nonvenomous) of scalp, initial encounter Patient Disposition: Home Condition: Stable Instructions: Antibiotic Form, Insect Bite or Sting (ED) Patient Language: [place]ese Prescriptions: New amoxicillin-pot clavulanate 875-125 mg tablet 1 tablet PO BID 10 Days Qty: 20 0RF No Action clindamycin HCl [Cleocin HCl] 150 mg capsule 450 mg PO TID 5 Days Qty: 45 0RF meloxicam 15 mg tablet 15 mg PO DAILY Qty: 10 0RF Follow-up/Referrals: UNKNOWN,DOCTOR [Primary Care Provider] Time of Disposition: 09:52
[2025-03-07 10:09] VITALS: BP 116/77; PULSE 85; RESP 18; O2SAT 99
--- OUTSIDE RECORDS SUMMARY | 2025-03-07 10:19 | XMS_ITS | Clinical Summary ---
Author Organization [facility] Address [address] [place] [address] Care Team Providers Care Facility Manager Name Role Phone Unavailable Primary Care Provider Unavailabl e Source Comments [facility] [employer] [facility] [employer]non-owned Affiliates and Associated Physician Practices is amultiple site organization consisting of ambulatory clinics and hospital sitesin [place], [place] and [place]. This disclosure is being madepursuant to the Care Everywhere program and may not contain all information available regarding this patient. Last updated 18.[facility] [employer] Active Problems Patient Care Coordination No te [...] of 3 - 19+ 3-dose series) 2001 HPV VACCINE (1 - 3-dose SCDM series) 2009 DEPRESSION SCREENING 06/09/2024 COVID-19 VACCINE (1 - 2023-2 5 season) 2025 INFLUENZA VACCINE (#1) 2025 ZOSTER VACCINE (1 of 2) 01/11/2032 [...]
--- OUTSIDE RECORDS SUMMARY | 2025-03-07 10:33 | XMS_ITS | Clinical Summary ---
Author Organization [facility] Address [facility] [place] [address] Care Team Providers Care Survey Analyst Name Role Phone None, Provider MD Primary Care Provider Unavaila ble Allergies No known active allergies Medications buprenorphine-na loxone 8-[address] 1 Film inside cheek daily. Active emtricitabine-te nofovir (TRUVADA) 200-300 MG tablet Take 1 tablet by mouth daily. 30 tablet 03/09/2019 Active raltegravir (ISENTRESS) 400 MG tablet Take 1 tablet (400 mg total) by mouth 2 (two) times daily. 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 Gender Identity Not on file Sexual Orientation Not on file Last Filed Vital Signs Vital Sign Reading Time Taken Comments Blood Pressure 148/89 03/09/2019 7:27 PM CDT Pulse 83 03/09/2019 7:27 PM CDT Temperature 36.8 C (98.2 F) 03/09/2019 7:27 PM CDT Respiratory Rate 18 03/09/2019 7:27 PM CDT Oxygen Saturation 99% 03/09/2019 7:27 PM CDT Inhaled Oxygen Concentration - - Weight 59 kg (130 lb) 03/09/2019 7:27 PM CDT Height 162.6 cm (5' 4) 03/09/2019 7:27 PM CDT Body Mass Index 22.31 03/09/2019 7:27 PM CDT Plan of Treatment Health Maintenance Due Date Last Done Comments Cervical Cancer Screening Pa p Smear (Age 30 to 64) Every 3 Years 1982 Annual Physical 1985 Hepatitis C 01/11/2000 DTaP, Tdap and Td Vaccines ( 1 - Tdap) 2001 Hepatitis B Vaccines (1 of 3 - 19+ 3-dose series) 2001 Pneumococcal Vaccine: Pediat rics (0 to 5 Years) and At-Risk Patients (6 to 49 Years) (1 of 2 - PCV) 2001 HPV Vaccines (1 - 3-dose SCD M series) 2009 Cervical Cancer Screening Pa p with HPV Testing (Age 30 to 64) Every 5 Years 01/11/2012 Cervical Cancer Screening with HPV 01/11/2012 Mammogram Screening 2022 COVID-19 Vaccine ( - 2023-2 5 season) 2025 Meningococcal B Vaccine Aged Out No l onger eligible based on patient's age to complete this topic Meningococcal Vaccine Aged Out No leopoldo priscilla eligible based on patient's age to complete this topic RSV Immunizations Under 20 Months Aged Out No longer eligible based on patient's age to complete this topic Insurance [employer] Care Teams Survey Analyst Relationship Specialty Start Date End Date None, Provider, PCP - General 03/09/19
--- OUTSIDE RECORDS SUMMARY | 2025-03-07 10:33 | XMS_ITS | Encounter Summary ---
Author Organization [facility] Address [facility] [place] [address] Care Team Providers Care Performance Test Engineer Name Role Phone None, Provider Primary Care Provider Unavaila ble Encounter Details Date Type Department Care Team ([facility] st Contact Info) Description 11/14/2018 Abstract SFL CONVERSION [address] [place] [address] , Generic Conversion, Social History Tobacco Use Types Packs/Day Years Used Date Smoking Tobacco: Never Assessed Comments Unknown Sex and Gender Information Value Date Recorded Sex Assigned at Not on file 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
== END 2025-03-07 10:10 | disposition home or self-care (01) ==
LOC: CHSED 09:56
PROVIDERS: Emergency Provider Emergency Medicine; Referring Provider Family Medicine
DX: S00.06XA Insect bite (nonvenomous) of scalp, initial encounter (principal); F17.210 Nicotine dependence, cigarettes, uncomplicated; W57.XXXA Bitten or stung by nonvenomous insect and other nonvenomous arthropods, initial encounter
CPT/HCPCS: 99283

== ENCOUNTER 2025-06-01 08:43 | Emergency (ER) | payer OTHER, SELFPAY ==
[2025-06-01 08:46] VITALS: BP 117/86; PULSE 112; RESP 18; TEMP 36.1; O2SAT 97
--- OUTSIDE RECORDS SUMMARY | 2025-06-01 08:46 | XMS_ITS | Encounter Summary ---
Author Organization [facility] Address [facility] [place] [address] Care Team Providers Care Auricular Detoxification Specialist Name Role Phone None, Provider Primary Care Provider Unavaila ble Encounter Details Date Type Department Care Team ([facility] st Contact Info) Description 11/14/2018 Abstract SFL CONVERSION [address] [place] [address] , Generic Conversion, Social History Tobacco Use Types Packs/Day Years Used Date Smoking Tobacco: Never Assessed Comments Unknown Sex and Gender Information Value Date Recorded Sex Assigned at Not on file 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
--- OUTSIDE RECORDS SUMMARY | 2025-06-01 08:46 | XMS_ITS | Clinical Summary ---
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 Gender Identity Not on file Sexual Orientation [...] HPV 01/11/2012 Mammogram Screening 2022 COVID-19 Vaccine (2024-2 6 season) 2025 Influenza Adult (#1) 2025 Hepatitis A Vaccines Aged Out No long er eligible based on patient's age to complete this topic Meningococcal B Vaccine Aged Out No l onger eligible based on patient's age to complete this topic Meningococcal Vaccine Aged Out No leopoldo priscilla eligible based on patient's age to complete this topic RSV Immunizations Under 20 Months Aged Out No longer eligible based on patient's age to complete this topic Insurance Care Teams Employment Services Director Relationship Specialty Start Date End Date None, Provider, PCP - General 03/09/19
--- OUTSIDE RECORDS SUMMARY | 2025-06-01 08:46 | XMS_ITS | Clinical Summary ---
Author Organization [facility] Address [facility] [place] [address] Care Team Providers Care Employee Relation Manager Name Role Phone No, Physician Primary Care Provider [phone] Allergies No known active allergies Medications propranoloL (INDERAL) 20 mg tablet Take 1 tablet (20 mg total) by mouth 2 (two) times a day 60 tablet [address] (PROTONIX) 40 mg EC tabletIndication s:Stress Ulcer Prophylaxis Take 1 tablet (40 mg total) by mouth daily 30 tablet 5 Active buprenorphine-na loxone (SUBOXONE) 4-1 mg per filmIndications: Prevention of Opioid Abuse,opioid use disorder Place 1 Film under the tongue every 4 (four) hours as needed for other or withdrawal symptoms (COWS greater than or equal to 5 AND/OR patient-reporte d withdrawal or cravings) 28 Film 5 Active Active Problems Problem Noted Date Diagnosed Date Stimulant withdrawal 04/14/2025 Assessment & Plan (04/14/2025 3:26 AM [employer]): Refers consuming 1 g amphetamines daily for the past 3 years, last use 04/13/2025 Librium taper Supportive management p.r.n. Opiate withdrawal 04/14/2025 Assessment & Plan (04/14/2025 3:26 AM [employer]): Refers using up to 10 beans of fentanyl daily, last use a proximally 3:00 a.m. on 04/13/2025 Librium taper Suboxone Supportive management Cellulitis 04/14/2025 Assessment & Plan (04/14/2025 3:26 AM [employer]): Localized to both distal forearms and hands, distal legs Blood culture x2 sets pending follow-up Oral antibiotics with Keflex and doxycycline Possible association with swelling of the same location Swelling 04/14/2025 Assessment & Plan (04/14/2025 3:26 AM [employer]): Localized to both hands and lower extremities bilaterally Possible association with cellulitis etiology Patient advised to remove rings from both hands due to concern for developing of blood flow impairment in finger(s) IV Lasix x1 Monitor urine output Monitor electrolyte levels BNP marker within normal limits Auscultation lungs are clear bilaterally, physical examination identifies trace edema lower extremities bilaterally with swelling of both hands distal legs bilaterally Polysubstance use disorder 04/13/2025 Encounters Date Type Department Care Team Description 04/13/2025 7:30 PM [employer] - 04/18/2025 10:20 AM [employer] [place] [address] Fernandez Valladares MD Sajjad, Sohaib, MD Polysubstance use disorder (Primary Dx); Chronic hepatitis C without hepatic coma; Cellulitis of upper extremity, unspecified laterality; Opiate withdrawal (HCC) Discharge Disposition: Discharge to an IP Rehab facility from Last 3 Months Surgical History Surgery Date Site/Laterality Comments TUBAL LIGATION N/A WRIST SURGERY Right Medical History Medical History Date Comments Polysubstance (including opioids) dependence, da delvis use (HCC) Family History Medical History Relation Name Comments Bladder Cancer Father Relation Name Status Comments Father Social History Tobacco Use Types Packs/Day Years Used Date Smoking Tobacco: Never Assessed Tobacco Cessation:Counseling Given: Not Answered Social Connection and Isolation Panel Answer Date Recorded In a typical week, how many times do you talk on the phone with family, friends, or neighbors? Patient declined 04/14/2025 How often do you get togethe r with friends or relatives? Patient declined 04/14/2025 How often do you attend restorationism or yarsanism serv ices? Patient declined 04/14/2025 Do you belong to any clubs o r organizations such as restorationism groups, unions, fraternal or athletic groups, or school groups? Patient declined 04/14/2025 How often do you attend meet ings of the clubs or organizations you belong to? Patient declined 04/14/2025 Are you , , di vorced, , never , or living with a partner? Patient declined 04/14/2025 Overall Financial Resource Strain (CARDIA) Answe r Date Recorded How hard is it for you to pa y for the very basics like food, housing, medical care, and heating? Patient declined 04/14/2025 Hunger Vital Sign Answer Date Recorded Within the past 12 months, y ou worried that your food would run out before you got the money to buy more. Patient declined Within the past 12 months, t he food you bought just didn't last and you didn't have money to get more. Patient declined 11/2024 PRAPARE - Transportation Answer Date Re corded In the past 12 months, has l ack of transportation kept you from medical appointments or from getting medications? Patient declined 04/14/2025 In the past 12 months, has l ack of transportation kept you from meetings, work, or from getting things needed for daily living? Patient declined 04/14/2025 Housing Stability Vital Sign Answer Ashu e Recorded In the last 12 months, was t here a time when you were not able to pay the mortgage or rent on time? Patient declined 04/14/20 25 Number of Times Moved in the Last Year Not on fi le 04/14/2025 At any time in the past 12 m [facility], were you homeless or living in a half-way (including now)? Patient declined 04/14/2025 [facility] Utilities Answer Date Recorded In the past 12 months has e [employer], gas, oil, or water company threatened to shut off services in your home? Patient declined 04/14/2025 Personal Safety Answer Date Recorded Have you ever been in or are you currently in a harmful physical or emotional relationship or is someone making you feel afraid or unsafe? Denies 04/13/2025 Comments Unknown Sex and Gender Information Value Date Recorded Sex Assigned at Not on file Legal Sex Female 1:10 PM [employer] Gender Identity Not on file Sexual Orientation Not on file Last Filed Vital Signs Vital Sign Reading Time Taken Comments Blood Pressure 111/88 04/18/2025 7:29 AM [employer] Pulse 60 04/18/2025 7:29 AM [employer] Temperature 36.6 C (97.9 F) 04/18/2025 7:29 AM [employer] Respiratory Rate 18 04/18/2025 7:29 AM [employer] Oxygen Saturation 100% 04/18/2025 7:29 AM [employer] Inhaled Oxygen Concentration - - Weight 73.5 kg (162 lb) 04/13/2025 10:49 PM [employer] Height 163.8 cm (5' 4.5) 04/13/2025 10:49 PM CS T Body Mass Index 27.38 04/13/2025 10:49 PM [employer] Plan of Treatment Health Maintenance Due Date Last Done Comments Breast Cancer Screening-Mammogram 1982 Cervical Cancer Screening 1982 Depression Screening 1982 DTaP/Tdap/Td Vaccine (1 - Tdap) 1993 Varicella Vaccines (1 of 2 - 13+ 2-dose series) 1995 Hepatitis B Screening 01/11/2000 Regular Well Visit/Exam 18-64 01/11/2000 Pneumococcal vaccine <65 (1 of 2 - PCV) 2001 HPV Vaccines (1 - 3-dose SCD M series) 2009 Influenza Vaccine (#1) 2025 Hepatitis C Screening Completed 04/15/2025 , 04/14/2025, 04/14/2025, Additional history exists Procedures Procedure Name Priority Date/Time Associated Diagnosis Comments HEPATITIS C RNA, QUANTITATIVE, PCR Routine 04/15/2025 4:08 PM [employer] BLOOD CULTURE STAT 04/14/2025 2:35 PM [employer] BLOOD SMEAR REVIEW Routine 04/14/2025 10 :57 AM [employer] EGFR Routine 04/14/2025 10:57 AM [employer] DIFFERENTIAL AUTO Routine 04/14/2025 10: 57 AM [employer] PHOSPHORUS Routine 04/14/2025 10:57 AM [employer] MAGNESIUM Routine 04/14/2025 10:57 AM [employer] BASIC METABOLIC PANEL Routine 04/14/2025 10:57 AM [employer] CBC WITH AUTO DIFFERENTIAL Routine 04/14/2025 10:57 AM [employer] HEPATITIS PANEL, ACUTE STAT 10:57 AM [employer] RPR STAT 04/14/2025 10:57 AM [employer] HIV 1/2 ANTIBODY PLUS P24 ANTIGEN STAT 04/14/2025 10:57 AM [employer] BLOOD CULTURE STAT 04/14/2025 10:57 AM [employer] PRO B-TYPE NATRIURETIC PEPTIDE STAT 04/14/2025 1:30 AM [employer] CREATINE KINASE (CK), TOTAL STAT 04/14/2025 1:30 AM [employer] CRP (ACUTE PHASE) STAT 04/14/2025 1:3 0 AM [employer] HCG, BLOOD, QUANTITATIVE STAT 04/14/2025 1:30 AM [employer] DRUGS OF ABUSE SCREEN, URINE WITHOUT CONFIRMATION STAT 04/13/2025 2:13 PM [employer] URINALYSIS AND REFLEX TO MICROSCOPIC AND CULTURE STAT 04/13/2025 2:13 PM [employer] EGFR STAT 04/13/2025 2:01 PM [employer] DIFFERENTIAL AUTO STAT 04/13/2025 2:0 1 PM [employer] ETHANOL STAT 04/13/2025 2:01 PM [employer] COMPREHENSIVE METABOLIC PANEL STAT 04/13/2025 2:01 PM [employer] CBC WITH AUTO DIFFERENTIAL STAT 04/13/2025 2:01 PM [employer] from Last 3 Months Results * (ABNORMAL) Hepatitis C (HCV) RNA PCR, quantitative Blood (04/15/2025 4:08 PM [employer]) [facility] HCV RNA result Detected( A) [facility] Comment: The quantifiable range of this assay is 15 IU/mL to 100,000,000 IU/mL (1.18 log IU/mL to 8.00 log IU/mL). Testing was performed by the [employer] HCV Test ([employer] Testing performed at [facility] Current Interpretive Data was last revised on 2021 Testing performed by: [facility], [address] [place]., [address] HCV RNA IU/mL 7,390,000 IUnits/mL BETH Comment:Testing performed by : [facility], [address] [place]., [address] HCV RNA log IU/mL 6.87 log IUnits/mL BETH Comment:Testing performed by : [facility], [address] [place]., [address] Blood 04/15/2025 4:08 PM [employer] 04/15/2025 9:01 PM [employer] Delta Champagne MD LAB MICROBIOLOGY - GENERAL [place] Final Result [facility] [address] Department [place] [address] [facility] * Blood culture Blood (04/14/2025 2:35 PM [employer]) [facility] Report Final Report: No growth Comment:Testing performed by : [facility], [address] [place]., [address] Blood 04/14/2025 2:35 PM [employer] 04/14/2025 6:06 PM [employer] Narrative BETH - 04/19/2025 7:00 AM [employer] Collection->Peripheral 1. Blood cultures are incubated for 4 days on a continuously monitored blood culture system. The first report of a negative culture is issued within 24 hours of receipt of the specimen in the laboratory. 2. Positive culture results are reported as soon as they are detected. 3. The most important factor for detection of microbes in the setting of bloodstream infection is the volume of blood submitted for culture. Failure to collect an optimal blood volume can result in false negative blood cultures. 4. For pediatric patients, the recommended blood volume to collect follows a weight based strategy. See the electronic test catalog for collection instructions. 5. For positive blood cultures, a rapid molecular test may be performed for organism identification using the [employer] ePlex blood culture identification panel for gram positive (BCID-GP) and gram negative (BCID-GN) organisms. This nucleic acid amplification test detects microbial DNA in positive blood culture broth. This assay has been cleared by the [place] Food and Drug Administration and its performance characteristics have been verified by the [facility]biology [facility]. For questions about this culture, contact the Microbiology Laboratory at [phone]. Interpretive data was last revised on 24. Fernandez Valladares MD LAB MICROBIOLOGY - GENERAL OR DERABLES Final Result Performing Organization Address [facility] Co de Phone Number [address] [place] [address] * Blood smear review (04/14/2025 10:57 AM [employer]) RBC morphology Normal [facility]let estimate [facility]qu[facility] Blood 04/14/2025 10:5 7 AM [employer] 04/14/2025 11:32 AM [employer] Fernandez Valladares MD LAB BLOOD ORDERABLES Final Re sult Performing Organization Address [facility] de Phone Number [address] [place] [address] * eGFR (04/14/2025 10:57 AM [employer]) eGFR 74 >=60 mL/min/1. 73 m2 Comment: Interpretive Data Reference Interval Normal >/= 90 mL/min/1.73m2 Mildly decreased* 60 - 89 mL/min/1.73m2 Mildly to moderately decreased 45 - 59 mL/min/1.73m2 Moderately to severely decreased 30 - 44 mL/min/1.73m2 Severely decreased 15 - 29 mL/min/1.73m2 Kidney Failure < 15 mL/min/1.73m2 *Relative to young adult level Estimated glomerular filtration rate is determined by the 2020 CKD-EPI equation recommended by the National Kidney Foundation (A Unifying Approach to GFR Estimation: Recommendations of the NKF-ASK Task Force on Reassessing the Inclusion of Race in Diagnosing Kidney Disease, JASN 202). The CKD-EPI equation should not be used for patients with unstable renal function and has not been validated in children and those over 70. Current interpretive data was last reviewed 2021. Blood 04/14/2025 10:5 7 AM [employer] 04/14/2025 11:32 AM [employer] Fernandez Valladares MD LAB BLOOD ORDERABLES Final Re sult [facility] [address] Department [place] [address] * Differential, auto (04/14/2025 10:57 AM [employer]) Neutrophil abs 2.95 1.50 - 6.50 K/cumm Imm gran abs 0.03 0.00 - 0.10 K/cumm [facility] Lymphocyte abs 1.74 0.80 - 3.30 K/cumm [facility] Monocyte abs 0.25 0.20 - 0.80 K/cumm [facility] Eosinophil abs 0.13 0.00 - 0.50 K/cumm [facility] Basophil abs 0.04 0.00 - 0.10 K/cumm [facility] Neutrophil pct 57.3 % [facility] Comment: Interpretive Data Percent cell count reference ranges are not reported, since discordance with absolute values may lead to misinterpretation of CBC data. Current Interpretive Data was last revised on 2017. Imm gran pct 0.6 % [facility] Comment: Interpretive Data Percent cell count reference ranges are not reported, since discordance with absolute values may lead to misinterpretation of CBC data. Current Interpretive Data was last revised on 2017. Lymphocyte pct 33.9 % [facility] Comment: Interpretive Data Percent cell count reference ranges are not reported, since discordance with absolute values may lead to misinterpretation of CBC data. Current Interpretive Data was last revised on 2017. Monocyte pct 4.9 % [facility] Comment: Interpretive Data Percent cell count reference ranges are not reported, since discordance with absolute values may lead to misinterpretation of CBC data. Current Interpretive Data was last revised on 2017. Eosinophil pct 2.5 % [facility] Comment: Interpretive Data Percent cell count reference ranges are not reported, since discordance with absolute values may lead to misinterpretation of CBC data. Current Interpretive Data was last revised on 2017. Basophil pct 0.8 % [facility] Comment: Interpretive Data Percent cell count reference ranges are not reported, since discordance with absolute values may lead to misinterpretation of CBC data. Current Interpretive Data was last revised on 2017. Blood 04/14/2025 10:5 7 AM [employer] 04/14/2025 11:32 AM [employer] us Fernandez Valladares MD LAB BLOOD ORDERABLES Final Re sult Performing Organization Address [facility] Co de Phone Number [address] [place] [address] * HIV 1/2 Antibody plus p24 Antigen Blood (04/14/2025 10:57 AM [employer]) HIV 1/2 ab + p24 ag Nonreactive Nonreactive Comment:Nonreactive for HIV- 1 antigen and HIV-1/HIV-2 antibodies. No laboratory evidence of HIV infection. If acute HIV infection is suspected, consider testing for HIV-1 RNA. Current interpretive data was last revised on 22. Blood 04/14/2025 10:5 7 AM [employer] 04/14/2025 11:32 AM [employer] us Fernandez Valladares MD LAB MICROBIOLOGY - GENERAL OR DERABLES Final Result Performing Organization Address City/[facility]/ZIP Co de Phone Number [facility] [address] [facility] [place] [address] * CBC with auto differential (04/14/2025 10:57 AM [employer]) [facility] WBC 5.14 3.80 - 9.90 K/cumm Hgb 14.7 11.9 - 15.5 g/dL [facility] Hct 43.9 35.6 - 45.5 % [facility] Plt 221 150 - 400 K/cumm [facility] MPV 10.0 9.1 - 12.3 fL [facility] RBC 4.86 3.90 - 5.20 M/cumm [facility] MCV 90.3 81.3 - 96.4 fL [facility] MCH 30.2 27.1 - 33.3 pg [facility] MCHC 33.5 32.3 - 35.7 g/dL [facility] RDW CV 14.0 11.1 - 14.9 % [facility] RDW SD 46.9 35.7 - 48.1 fL [facility] NRBC abs 0.00 0.00 - 0.01 K/cumm [facility] Blood 04/14/2025 10:5 7 AM [employer] 04/14/2025 11:32 AM [employer] us Fernandez Valladares MD LAB BLOOD ORDERABLES Edited R esult - Final [facility] [address] Department [place] [address] * (ABNORMAL) Hepatitis panel, acute Blood (04/14/2025 10:57 AM [employer]) [facility] Hep A IgM Nonreactive Nonreactive Comment: Interpretive Data: If Hep A IgM Ab is reported as Equivocal, a new sample should be drawn in two weeks for testing. Current interpretive data was last revised on 19. Hep B core IgM Nonreactive Nonreactive [facility] Comment: Interpretive Data If HepB Core IgM Ab is reported as Equivocal, a new sample should be drawn in two weeks for testing. Current interpretive data was last revised on 19. Hep C Ab Reactive(A) Nonreactive [facility] Comment: Reactive for HCV antibodies. This may represent current or past HCV infection. Supplemental molecular testing will be automatically performed to determine current infection status in accordance with current CDC screening recommendations. Current interpretive data was last revised on 22 Interpretive Data Nonreactive: Antibodies to HCV not detected. Does NOT exclude the possibility of recent exposure to HCV. Equivocal: Equivocal for HCV antibodies. Supplemental molecular testing will be automatically performed to determine infection status in accordance with current CDC screening recommendations. Reactive: Positive for HCV antibodies. This may represent current or past HCV infection. Supplemental molecular testing will be automatically performed to determine current infection status in accordance with current CDC screening recommendations. Interpretive data was last revised on 2019. HepBsAg Nonreactive Nonreactive [facility] Blood 04/14/2025 10:5 7 AM [employer] 04/14/2025 11:32 AM [employer] us Fernandez Valladares MD LAB MICROBIOLOGY - GENERAL OR DERABLES Final Result Performing Organization Address [facility] de Phone Number [address] [place] [address] * RPR Blood (04/14/2025 10:57 AM [employer]) RPR Nonreactive Nonreactive Comment:Testing performed by : [facility], [address] [place] [address]., [id number] Blood 04/14/2025 10:5 7 AM [employer] 04/14/2025 3:31 PM [employer] us Fernandez Valladares MD LAB MICROBIOLOGY - GENERAL OR DERABLES Final Result Performing Organization Address City/[facility] Co de Phone Number [address] [address] * Blood culture Blood (04/14/2025 10:57 AM [employer]) Report Final Report: No growth Comment:Testing performed by : [facility], [address] [place] [address]., [id number] Blood 04/14/2025 10:5 7 AM [employer] 04/14/2025 1:08 PM [employer] Narrative BETH - 04/18/2025 4:00 PM [employer] Received only aerobic blood culture bottle Collection->Peripheral 1. Blood cultures are incubated for 4 days on a continuously monitored blood culture system. The first report of a negative culture is issued within 24 hours of receipt of the specimen in the laboratory. 2. Positive culture results are reported as soon as they are detected. 3. The most important factor for detection of microbes in the setting of bloodstream infection is the volume of blood submitted for culture. Failure to collect an optimal blood volume can result in false negative blood cultures. 4. For pediatric patients, the recommended blood volume to collect follows a weight based strategy. See the electronic test catalog for collection instructions. 5. For positive blood cultures, a rapid molecular test may be performed for organism identification using the [employer]o ePlex blood culture identification panel for gram positive (BCID-GP) and gram negative (BCID-GN) organisms. This nucleic acid amplification test detects microbial DNA in positive blood culture broth. This assay has been cleared by the [place] Food and Drug Administration and its performance characteristics have been verified by the [facility]biology [facility]. For questions about this culture, contact the Microbiology Laboratory at [phone]. Interpretive data was last revised on 24. Fernandez Valladares MD LAB MICROBIOLOGY - GENERAL OR DERABLES Final Result Performing Organization Address City/[facility]/ZIP Co de Phone Number [address] [place] [place] [address] * Phosphorus (04/14/2025 10:57 AM [employer]) Pathologist [facility] Phosphorus, pl 3.4 2.3 - 4.5 mg/dL Blood 04/14/2025 10:5 7 AM [employer] 04/14/2025 11:32 AM [employer] Fernandez Valladares MD LAB BLOOD ORDERABLES Final Re sult Performing Organization Address [facility]/ZIP Co de Phone Number [address] Department [place] [address] * Magnesium (04/14/2025 10:57 AM [employer]) Pathologist [facility] Magnesium 1.9 1.4 - 2.5 mg/dL Blood 04/14/2025 10:5 7 AM [employer] 04/14/2025 11:32 AM [employer] Fernandez Valladares MD LAB BLOOD ORDERABLES Final Re sult Performing Organization Address [facility] Co de Phone Number [address] [place] [address] * Basic metabolic panel (04/14/2025 10:57 AM [employer]) [facility] Sodium 140 135 - 145 mmol/L Potassium, pl 3.9 3.3 - 4.9 mmol/L [facility] Chloride 102 97 - 110 mmol/L [facility] CO2 26 22 - 32 mmol/L [facility] Anion gap 12 2 - 15 mmol/L [facility] BUN 12 6 - 25 mg/dL [facility] Creatinine 0.97 0.60 - 1.10 mg/dL [facility] Glucose 103 70 - 199 mg/dL [facility] [facility] Comment: Interpretive Data Fasting glucose >/= 126 mg/dl is diagnostic for diabetes. Fasting is defined as no caloric intake for at least 8 hours. Fasting glucose between 100 mg/dl to 125 mg/dl is diagnostic of prediabetes. In a patient with classic symptoms of hyperglycemia or hyperglycemic crisis, a random glucose >/= 200 mg/dl is diagnostic for diabetes. In the absence of unequivocal hyperglycemia, results should be confirmed by repeat testing. The classification and Diagnosis of Diabetes Diabetes Care 202; 46: S19-S40. Current interpretive data was last revised 2022. Calcium 9.7 8.5 - 10.3 mg/dL [facility] Blood 04/14/2025 10:5 7 AM [employer] 04/14/2025 11:32 AM [employer] Fernandez Valladares MD LAB BLOOD ORDERABLES Final Re sult Performing Organization Address City/[facility] Co de Phone Number [address] [place] [address] * Pro B-type natriuretic peptide (04/14/2025 1:30 AM [employer]) NT-proBNP <36 <=300 pg/mL Comment: Interpretive Comments: A. Dyspnea in Acute Care Setting All Ages: < 300 pg/ml, acute heart failure unlikely. < 50 yrs: 300 - 450 pg/ml, further investigation warranted. > 450 pg/ml, acute heart failure likely. 50 - 74 yrs: 300 - 900 pg/ml, further investigation warranted. > 900 pg/ml, acute heart failure likely . > or = 75 yrs: 450 - 1800 pg/ml, further investigation warranted. > 1800 pg/ml, acute heart failure likely. B. Non-acute Setting < 75 yrs < 125 pg/ml, rules out heart failure. > or = 125 pg/ml, further investigation warranted. > or = 75 yrs < 450 pg/ml, rules out heart failure. > or = 450 pg/ml, further investigation warranted. - Knowledge of each individual patient's NT-proBNP range may be more useful than using similar cut-points for every patient. Please note that marked elevations in NT-proBNP levels may be observed in state other than Left Ventricular Congestive Failure, including: acute coronary syndromes, right heart strain/failure (including pulmonary embolism and cor pulmonale), critical illness, renal failure, as well as advanced age. - References: 1. Tree HAWKINS et.al. Eur Heart J. 2006:27:330-337. 2. Keyur RW, Basilio SAINZ. J. AM Dao Cardiol: Cardiovasc Imag. 2009;2: 216- 225. Interpretive Data Last Revised Date: 2018. Blood 04/14/2025 1:30 AM [employer] 04/14/2025 1:36 AM [employer] us Fernandez Valladares MD LAB BLOOD ORDERABLES Final Re sult [facility] [address] Department [place] [address] * CRP (acute phase) (04/14/2025 1:30 AM [employer]) CRP 9.9 <=10.0 mg/L Blood 04/14/2025 1:30 AM [employer] 04/14/2025 1:36 AM [employer] us Fernandez Valladares MD LAB BLOOD ORDERABLES Final Re sult Performing Organization Address [facility] de Phone Number [facility] [address] [address] * hCG, blood, quantitative (04/14/2025 1:30 AM [employer]) Pathologist [facility] [place] hCG, quant <5.0 0.0 - 5.0 IUnits/L Comment: Interpretive Data Male: < 5 IU/L Non- premenopausal Female: <5 IU/L The Ernie hCG Beta Quant assay procedure was used. Results from different manufacturers or methods may not be comparable. Serial testing should be performed using the same method. Interpretive Data was last revised on 2023 Blood 04/14/2025 1:30 AM [employer] 04/14/2025 1:36 AM [employer] us Fernandez Valladares MD LAB BLOOD ORDERABLES Final Re sult Performing Organization Address [facility] de Phone Number [address] [address] * Creatine kinase (CK), total (04/14/2025 1:30 AM [employer]) [facility] CK 61 30 - 200 Units/L Blood 04/14/2025 1:30 AM [employer] 04/14/2025 1:36 AM [employer] us Fernandez Valladares MD LAB BLOOD ORDERABLES Final Re sult Performing Organization Address [facility] Co de Phone Number [address] [address] * (ABNORMAL) Urinalysis reflex to microscopic and culture Urine (04/13/2025 2:13 PM [employer]) Pathologist [facility] Color, ur Yellow Yellow Clarity, ur Clear Clear [facility] Specific gravity, ur 1.024 1.003 - 1.030 [facility] pH, urine 8.0 [facility] Comment: Interpretive Data U rine pH is affected by diet, medications, systemic acid-base disturbances, and renal tubular function. pH may affect urinary stone formation. For example, urine pH below 6.0 may help reduce the tendency for calcium phosphate stones and pH greater than 6.0 may reduce the tendency for uric acid stone formation. Source: [facility] Current Interpretive Data was last revised on 2017 Protein, ur ql Negative Negative [facility] Glucose, ur ql Negative Negative [facility] Ketones, ur Negative Negative [facility] Bilirubin, ur Negative Negative [facility] Blood, ur Negative Negative [facility] Urobilinogen, ur 2.0(A) <2.0 mg/dL [facility] Nitrite, ur Negative Negative [facility] Leukocyte esterase, ur Negative Negative [facility] UA reflex comment Reflex conditions for microscopic UA and culture not met. [facility] Urine 04/13/2025 2:13 PM [employer] 04/13/2025 2:18 PM [employer] Britta QUILES LAB MICROBIOLOGY - GENERAL OR DERABLES Final Result [facility] [address] Department [place] [address] * (ABNORMAL) Drugs of Abuse Screen, Urine without Confirmation (04/13/2025 2:13 PM [employer]) Amphetamine, ur Screen Positive, presumptive (A) CutOff 500ng/mL Comment: Interpretive Data - Amphetamines: Samples containing greater than 500 ng/mL d-methamphetamine or other cross-reacting amphetamine compounds are reported as positive. Amphetamine immunoassays are subject to significant false positive rates due to cross-reactivity of non-amphetamine drugs. Confirmatory testing required for definitive results. Current Interpretive Data was last reviewed 2023. Barbiturates, ur Not Detected CutOff 200ng/mL [facility] Comment: Interpretive Data - Barbiturates: Samples containing greater than 200 ng/mL secobarbital or other cross-reacting barbiturate compounds are reported as positive. False positive and false negative results are possible. Confirmatory testing required for definitive results. Current Interpretive Data was last reviewed 2023. Benzodiazepines, ur Not Detected CutOff 100ng/mL [facility] Comment: Interpretive Data - Benzodiazepines: Samples containing greater than 100 ng/mL nordiazepam or other cross-reacting compounds are reported as positive. False positive and false negative results are possible. Confirmatory testing required for definitive results. Current Interpretive Data was last reviewed 2023. Cannabinoids, ur Not Detected CutOff 50 ng/mL [facility] Comment: Interpretive Data - Cannabinoids: Samples containing greater than 50 ng/mL delta-9 THC -COOH or other cross- reacting compounds are reported as positive. False positive and false negative results are possible. Confirmatory testing required for definitive results. Current Interpretive Data was last reviewed 2023. Cocaine, ur Not Detected CutOff 150ng/mL [facility] Comment: Interpretive Data - Cocaine: Samples containing greater than 150 ng/mL benzoylecgonine or other cross- reacting compounds are reported as positive. False positive and false negative results are possible. Confirmatory testing required for definitive results. Current Interpretive Data was last reviewed 2023. Fentanyl, Ur Screen Positive, presumptive (A) CutOff 5 ng/mL [facility] Comment: Interpretive Data - Fentanyl: Samples containing greater than 5 ng/mL norfentanyl, fentanyl, or other cross-reacting fentanyl compounds are reported as positive. False positive and false negative results are possible. Confirmatory testing required for definitive results. Current Interpretive Data was last reviewed 2023. Methadone, ur Not Detected CutOff 300ng/mL [facility] Comment: Interpretive Data - Methadone: Samples containing greater than 300 ng/mL d,l-methadone or other cross-reacting compounds are reported as positive. False positive and false negative results are possible. Confirmatory testing required for definitive results. Current Interpretive Data was last reviewed 2023. Opiates, ur Not Detected CutOff 300ng/mL [facility] Comment: Interpretive Data - Opiates: Samples containing greater than 300 ng/mL morphine or other cross-reacting compounds are reported as positive. False positive and false negative results are possible. Confirmatory testing required for definitive results. Current Interpretive Data was last reviewed 2023. Oxycodone, ur Not Detected CutOff 100ng/mL [facility] Comment: Interpretive Data - Oxycodone: Samples containing greater than 100 ng/mL oxycodone or other cross-reacting compounds are reported as positive. False positive and false negative results are possible. Confirmatory testing required for definitive results. Current Interpretive Data was last reviewed 2023. Phencyclidine, ur Not Detected CutOff 25 ng/mL [facility] Comment: Interpretive Data - Phencyclidine: Samples containing greater than 25 ng/mL phencyclidine or other cross-reacting compounds are reported as positive. False positive and false negative results are possible. Confirmatory testing required for definitive results. Current Interpretive Data was last reviewed 2023. Urine Creatinine 254 mg/dL [facility] Comment: Interpretive Data Urine Creatinine: < 10 mg/dL is extremely dilute = or > 10 but < 20 mg/dL is dilute = or > 20 mg/dL is normal Current Interpretive Data was last revised on 2017. Urine 04/13/2025 2:13 PM [employer] 04/13/2025 2:18 PM [employer] Narrative [facility] - 04/13/2025 3:00 PM [employer] Drug of Abuse screening is performed by immunoassay for medical purposes only. This is not to be used for Pain Management purposes. Britta QUILES LAB URINE ORDERABLES Final Re sult [facility] [address] Department [place] [address] * eGFR (04/13/2025 2:01 PM [employer]) eGFR 84 >=60 mL/min/1. 73 m2 Comment: Interpretive Data Reference Interval Normal >/= 90 mL/min/1.73m2 Mildly decreased* 60 - 89 mL/min/1.73m2 Mildly to moderately decreased 45 - 59 mL/min/1.73m2 Moderately to severely decreased 30 - 44 mL/min/1.73m2 Severely decreased 15 - 29 mL/min/1.73m2 Kidney Failure < 15 mL/min/1.73m2 *Relative to young adult level Estimated glomerular filtration rate is determined by the 2020 CKD-EPI equation recommended by the National Kidney Foundation (A Unifying Approach to GFR Estimation: Recommendations of the NKF-ASK Task Force on Reassessing the Inclusion of Race in Diagnosing Kidney Disease, JASN 202). The CKD-EPI equation should not be used for patients with unstable renal function and has not been validated in children and those over 70. Current interpretive data was last reviewed 2021. Blood 04/13/2025 2:01 PM [employer] 04/13/2025 2:06 PM [employer] us Britta QUILES LAB BLOOD ORDERABLES Final Re sult [facility] [address] Department of Laboratories [place], [place] [id number] * Differential, auto (04/13/2025 2:01 PM [employer]) Pathologist [facility] [place] Neutrophil abs 3.87 1.50 - 6.50 K/cumm Imm gran abs 0.01 0.00 - 0.10 K/cumm [facility] Lymphocyte abs 1.46 0.80 - 3.30 K/cumm [facility] Monocyte abs 0.22 0.20 - 0.80 K/cumm [facility] Eosinophil abs 0.16 0.00 - 0.50 K/cumm [facility] Basophil abs 0.05 0.00 - 0.10 K/cumm [facility] Neutrophil pct 67.0 % [facility] Comment: Interpretive Data Percent cell count reference ranges are not reported, since discordance with absolute values may lead to misinterpretation of CBC data. Current Interpretive Data was last revised on 2017. Imm gran pct 0.2 % [facility] Comment: Interpretive Data Percent cell count reference ranges are not reported, since discordance with absolute values may lead to misinterpretation of CBC data. Current Interpretive Data was last revised on 2017. Lymphocyte pct 25.3 % [facility] Comment: Interpretive Data Percent cell count reference ranges are not reported, since discordance with absolute values may lead to misinterpretation of CBC data. Current Interpretive Data was last revised on 2017. Monocyte pct 3.8 % [facility] Comment: Interpretive Data Percent cell count reference ranges are not reported, since discordance with absolute values may lead to misinterpretation of CBC data. Current Interpretive Data was last revised on 2017. Eosinophil pct 2.8 % [facility] Comment: Interpretive Data Percent cell count reference ranges are not reported, since discordance with absolute values may lead to misinterpretation of CBC data. Current Interpretive Data was last revised on 2017. Basophil pct 0.9 % [facility] Comment: Interpretive Data Percent cell count reference ranges are not reported, since discordance with absolute values may lead to misinterpretation of CBC data. Current Interpretive Data was last revised on 2017. Blood 04/13/2025 2:01 PM [employer] 04/13/2025 2:06 PM [employer] Britta QUILES LAB BLOOD ORDERABLES Final Re sult [facility] [address] Department [place] [address] * (ABNORMAL) CBC with auto differential (04/13/2025 2:01 PM [employer]) Pathologist [facility] [place] WBC 5.77 3.80 - 9.90 K/cumm Hgb 13.8 11.9 - 15.5 g/dL [facility] Hct 41.4 35.6 - 45.5 % [facility] Plt 284 150 - 400 K/cumm [facility] MPV 9.0(L) 9.1 - 12.3 fL [facility] RBC 4.64 3.90 - 5.20 M/cumm [facility] MCV 89.2 81.3 - 96.4 fL [facility] MCH 29.7 27.1 - 33.3 pg [facility] MCHC 33.3 32.3 - 35.7 g/dL [facility] RDW CV 14.0 11.1 - 14.9 % [facility] RDW SD 45.5 35.7 - 48.1 fL [facility] NRBC abs 0.00 0.00 - 0.01 K/cumm [facility] Blood 04/13/2025 2:01 PM [employer] 04/13/2025 2:06 PM [employer] Britta Bernard [place] LAB BLOOD ORDERABLES Final Re sult Performing Organization Address [facility]/ZIP Co de Phone Number [facility] [address] [address] * Ethanol (04/13/2025 2:01 PM [employer]) Ethanol <10 <=10 mg/dL Comment: Interpretive Data Legal limit of intoxication > or = 80 mg/dL Levels > or = 400 mg/dL are potentially TOXIC. Current interpretive data was last revised on 2018. Blood 04/13/2025 2:01 PM [employer] 04/13/2025 2:06 PM [employer] [facility] BLOOD ORDERABLES Final Re sult Performing Organization Address [facility] Co de Phone Number [address] [address] * Comprehensive metabolic panel (04/13/2025 2:01 PM [employer]) Pathologist [facility] [place] Sodium 139 135 - 145 mmol/L Potassium, pl 3.9 3.3 - 4.9 mmol/L [facility] Chloride 102 97 - 110 mmol/L [facility] CO2 27 22 - 32 mmol/L [facility] Anion gap 10 2 - 15 mmol/L [facility] BUN 8 6 - 25 mg/dL [facility] Creatinine 0.88 0.60 - 1.10 mg/dL [facility] Glucose 123 70 - 199 mg/dL [facility] Comment: Interpretive Data Fasting glucose >/= 126 mg/dl is diagnostic for diabetes. Fasting is defined as no caloric intake for at least 8 hours. Fasting glucose between 100 mg/dl to 125 mg/dl is diagnostic of prediabetes. In a patient with classic symptoms of hyperglycemia or hyperglycemic crisis, a random glucose >/= 200 mg/dl is diagnostic for diabetes. In the absence of unequivocal hyperglycemia, results should be confirmed by repeat testing. The classification and Diagnosis of Diabetes Diabetes Care 2021; 46: S19-S40. Current interpretive data was last revised 2022. Calcium 9.5 8.5 - 10.3 mg/dL [facility] Bilirubin, total 0.4 0.1 - 1.2 mg/dL [facility] Protein, pl 7.2 6.5 - 8.5 g/dL [facility] Albumin 3.8 3.5 - 5.0 g/dL [facility] Alk phos 95 40 - 130 Units/L [facility] ALT 18 7 - 45 Units/L [facility] AST 25 10 - 45 Units/L [facility] Blood 04/13/2025 2:01 PM [employer] 04/13/2025 2:06 PM [employer] us Britta QUILES LAB BLOOD ORDERABLES Final Re sult [facility] [address] [place] [address] from Last 3 Months Insurance [facility] Advance Directives For more information, please contact: [phone] * LIMITED - No CPR (Latest Code Status on File) Date Activated Date Inactivated Comments 04/14/2025 12:56 AM 04/18/2025 2:26 PM Question Answer Comments Provide aggressive medical m anagement before a full cardiopulmonary arrest occurs. Use antibiotics, IV Fluids, and medical treatment unless specifically selected below: No intubation Care Teams Employee Relation Manager Relationship Specialty Start Date End Date No, Physician PCP - General 04/13/25
--- OUTSIDE RECORDS SUMMARY | 2025-06-01 08:46 | XMS_ITS ---
Author Organization Unknown Address [address] [place] [phone] Phone Care Team Providers Care Aircraft Mechanic Name Role Phone NAA ARAIZA Attending Unavailable NO PCP Primary Unavailable Results MAGNESIUM - Collect Date/Ankur e: 03/22/2025 06:40 [facility] ID: [id number] [address] [place] [address], [phone] LOINC: 72329-0 Test Value Unit Reference Range Code Code System Flag MAGNESIUM 1.6 mg/dL L=1.6 H=2.3 22732-8 LOINC PROTIME - Collect Date/Time: 03/22/2025 06:40 [facility] ID: [id number] [address] [place] [address], [phone] LOINC: 42793-5 Test Value Unit Reference Range Code Code System Flag PT 9.9 Sec L=9.6 H=11.5 64195-6 LOINC INR 0.9 Sec L=0.9 H=1.1 16926-2 LOINC PTT - Collect Date/Time: 06:40 [facility] ID: [id number] [address] [place] [address], [phone] LOINC: 46098-3 Test Value Unit Reference Range Code Code System Flag PTT 27.8 Sec L=22.7 H=30.3 TROPONIN LEVEL - Collect Ashu e/Time: 03/22/2025 06:40 [facility] ID: [id number] [address] [place], [place], [phone] LOINC: 39094-0 Test Value Unit Reference Range Code Code System Flag TROPONIN < 0.012 ng/mL L=0.000 H=0.033 68108-2 LOINC CBC W/ DIFF - Collect Date/T charles: 03/22/2025 06:40 [facility] ID: [id number] [address] [place], [place], [phone] LOINC: 44829-9 Test Value Unit Reference Range Code Code System Flag WBC 8.1 10^3uL L=4.0 H=10.5 RBC 4.52 10^6uL L=4.20 H=5.40 HEMOGLOBIN 13.6 g/dL L=12.0 H=16.0 718-7 LOINC HEMATOCRIT 39.7 VOL% L=37.0 H=47.0 4544-3 LOINC MCV 87.8 fL L=81.0 H=99.0 MCH 30.1 pg L=27.0 H=32.0 MCHC 34.3 g/dL L=32.0 H=36.0 PLATELETS 290 10^3uL L=100 H=400 56704-1 LOINC RDW 13.4 % L=11.7 H=15.5 %GRAN 58.5 % L=40.0 H=70.0 52360-8 LOINC %LYMPH 31.8 % L=20.0 H=45.0 736-9 LOINC %MONO 6.8 % L=2.0 H=10.0 89386-5 LOINC %EOS 2.1 % L=0.0 H=6.0 713-8 LOINC %BASO 0.6 % L=0.0 H=3.0 706-2 LOINC #NEUT 4.8 10^3uL L=1.9 H=7.6 12625-2 LOINC #LYMPH 2.6 10^3uL L=0.9 H=4.9 86571-3 LOINC #MONO 0.6 10^3uL L=0.1 H=0.9 04132-1 LOINC #EOS 0.2 10^3uL L=0.0 H=0.6 712-0 LOINC #BASO 0.05 10^3uL L=0.00 H=0.10 54010-5 LOINC #IM GRANS 0.0 10^3uL L=0.0 H=7.0 78798-9 LOINC %IM GRANS 0.2 % L=0.0 H=5.0 83487-5 LOINC %NRB 0.0 L=0.0 H=0.2 73560-5 LOINC #NRB 0.000 L=0.000 H=0.012 62775-8 LOINC MANUAL DIFF NOT INDICATED RBC MORPH NOT INDICATED COMPREHENSIVE METABOLIC PANE L - Collect Date/Time: 03/22/2025 06:40 [facility] ID: [id number] [address] [place], [place], [phone] LOINC: 18076-5 Test Value Unit Reference Range Code Code System Flag FASTING UNKNOWN BUN 10 mg/dL L=7 H=20 3094-0 LOINC CREATININE 1.00 mg/dL L=0.52 H=1.04 2160-0 LOINC AGE 45 75074-4 LOINC eGFR 72 GLUCOSE 116 mg/dL L=74 H=106 2345-7 LOINC H SODIUM 140 mmol/L L=132 H=144 2951-2 LOINC POTASSIUM 3.4 mmol/L L=3.5 H=5.1 2823-3 LOINC L CHLORIDE 103 mmol/L L=98 H=107 2075-0 LOINC CO2 30.0 mmol/L L=22.0 H=30.0 2028-9 LOINC ANION GAP 10 L=10 H=20 08777-3 LOINC OSMOLALITY 290 mOs/kG L=280 H=296 13121-8 LOINC BUN/CREAT 10.0 3097-3 LOINC CALCIUM 9.2 mg/dL L=8.3 H=10.5 56252-9 LOINC AST 26 U/L L=15 H=46 1920-8 LOINC ALT 17 U/L L=9 H=72 1742-6 LOINC ALKALINE PHOS 80 U/L L=38 H=126 6768-6 LOINC TOTAL BILI 0.3 mg/dL L=0.2 H=1.3 1975-2 LOINC ALBUMIN 4.2 G/dL L=3.5 H=5.0 1751-7 LOINC TOTAL PROTEIN 7.4 g/L L=6.3 H=8.2 2885-2 LOINC A/G RATIO 1.3 06927-2 LOINC CHEST 1V - Completed: 2024 06:53 LOINC: \TM00\\12PI\\DRAo\\BM09\ \MRHo\ [address] [address] ---------NAME--------- NUMBER SEX AGE ADMIT DISC. XRAY# F/C TYPE JUAN [id number] F 45 03/22/25 76746 P E.R. DATE OF : 1980 M/R# [id number] PH#: [phone] ED-34 [facility] LOCATION: TRANSCRIBED: 03/22/25 7:03 CHEST 1V [id number] COMPLETED:03/22/25 6:53 CLP 73320 Chest Pain PHYSICIAN: KINGSLEY R A D I O L O G Y R E P O R T CHEST RADIOGRAPH Indication: Chest Pain Technique: Single frontal view of the chest was obtained COMPARISON: None FINDINGS: Lines and Tubes: None Lungs: Clear Pleura: No effusion. No pneumothorax. Cardiomediastinal contours: Unremarkable Bones: Unremarkable IMPRESSION: 1. No acute disease. NEERING INSTRUCTOR \ITLo\ \UNDo\ \UNDx\ \ITLx\ Reviewed and Electronically Signed by: Pedro Borja MD Signed Date: 03/22/25 07:03 Social History Type Status Start Date End Date Code Code Syst em Sex Female Hospital Discharge Instructions Should you have any questions prior to discharge, please contact a member of your healthcare team. If you have left the hospital and have any questions, please contact your primary care physician. Reason For Referral No Data Found Plan of Treatment No Data Found Encounters Encounter Diagnosis Start Date Code Code Sys tem Other chest pain 03/22/2025 SNOMED-CT Personal Care Team Section Imaging Narrative Notes [facility] 03/22/2025 07:[address] [address] ---------NAME--------- NUMBER SEX AGE ADMIT DISC. XRAY# F/C TYPE JUAN [id number] F 45 03/22/25 78409 P E.R. DATE OF : 1980 M/R# [id number] #: [phone] ED-34 LOCATION: TRANSCRIBED: 03/22/25 7:03 CHEST 1V [id number] COMPLETED:03/22/25 6:53 CLP 86076 Chest Pain PHYSICIAN: KINGSLEY RADIOLOGY REPORT CHEST RADIOGRAPH Indication: Chest Pain Technique: Single frontal view of the chest was obtained COMPARISON: None FINDINGS: Lines and Tubes: None Lungs: Clear Pleura: No effusion. No pneumothorax. Cardiomediastinal contours: Unremarkable Bones: Unremarkable IMPRESSION: 1. No acute disease. NEERING INSTRUCTOR Reviewed and Electronically Signed by: Pedro Borja MD Signed Date: 03/22/25 07:03
--- OUTSIDE RECORDS SUMMARY | 2025-06-01 08:46 | XMS_ITS | Clinical Summary ---
Author Organization [facility] Address [address] [place] [address] Care Team Providers Care Customer Relations Advisor Name Role Phone Unavailable Primary Care Provider Unavailabl e Source Comments [facility],non-owned Affiliates and Associated Physician Practices is amultiple site organization consisting of ambulatory clinics and hospital sitesin [place], [place], [place] and [place]. This disclosure is being madepursuant to the Care Everywhere program and may not contain all information available regarding this patient. Last updated 18.[facility] Active Problems Patient Care Coordination No te [...] DEPRESSION SCREENING 06/09/2024 COVID-19 VACCINE (1 - 2024-2 6 season) 2025 INFLUENZA VACCINE (#1) 2025 ZOSTER [...]
--- NOTE | 2025-06-01 08:51 | ED_ITS ---
HPI - Ear Problem General Chief complaint: Ear Stated complaint: elbow/ear pain Time Seen by Provider: 06/01/25 08:48 Source: patient Mode of arrival: ambulatory Limitations: no limitations History of Present Illness HPI Narrative: 45-year-old here with a complaint of left ear pain for past 3 days now also has pain in her right elbow which has been ongoing for last several months. She denies any fever or chills no recent trauma MD Complaint: ear pain Location: left ear Duration: constant Severity: moderate Exacerbating factors: nothing Context: Reports recent illness Discharge from ear: Reports no Treatment prior to arrival: none Related Data Home Medications ?Medication ?Instructions ?Recorded ?Confirmed ?Last Taken ?Type No Home Medications 06/01/25 06/01/25 U nknown History Allergies Allergy/AdvReac Type Severity Reaction Status Date / Time No Known Allergies Allergy Verified 03/07/25 09:50 Review of Systems Review of Systems: All systems reviewed & are unremarkable except as noted in HPI and below Constitutional: Constitutional: Reports no additional constitutional complaints Eyes: Eyes: Reports no additional eye complaints ENT: Reports as per HPI Cardiovascular: Cardiovascular: Reports no additional cardiovascular complaints Respiratory: Respiratory: Reports no additional respiratory complaints Musculoskeletal: Musculoskeletal: Reports as per HPI PMFSH Past Medical History Medical History Depression Hepatitis C Surgical History Surgical History H/O wrist surgery Family History Family History Other No significant family history Social History Social History Smoking packs per day: 0.5 Smoking cigarettes per day: 10.0 Smoking status: Current every day smoker Tobacco type: cigarettes Substance use: current Substance use type: marijuana, heroin, opiates, painkillers, methamphetamine and prescription drug Other substance usage details: regular use of marijuana, Reports rare use of heroin. Exam Narrative: GENERAL: Well-appearing, well-nourished, and in no acute distress. HEAD: Normocephalic, atraumatic. EYES: PERRLA and EOMI. ENT: Nares clear, no rhinorrhea or epistaxis. Mucous membranes moist. Right TM is normal left TM is bulging NECK: Supple. CHEST: Clear to auscultation. No respiratory distress. HEART: Regular rate and rhythm. No murmur heard. Normal peripheral pulses. EXTREMITIES: Normal range of motion. No edema. SKIN: Warm, dry, no rash. NEURO: No focal deficits. Alert and oriented x3. PSYCH: Normal mood and affect. Course Vital Signs Vital signs: Vital Signs Temperature 36.1 C L 06/01/25 08:46 Pulse Rate 112 H 06/01/25 08:46 Respiratory Rate 18 06/01/25 08:46 Blood Pressure 117/86 06/01/25 08:46 Pulse Oximetry 97 06/01/25 08:46 Oxygen Delivery Room Air 06/01/25 08:46 Temperature 36.1 C L 06/01/25 08:46 Pulse Rate 112 H 06/01/25 08:46 Respiratory Rate 18 06/01/25 08:46 Blood Pressure 117/86 06/01/25 08:46 Pulse Oximetry 97 06/01/25 08:46 Oxygen Delivery Room Air 06/01/25 08:46 MDM Differential Diagnosis Differential Diagnosis: Otitis media, middle ear effusion, Discharge Plan Discharge Clinical Impression: Right elbow tendonitis Otitis media Qualifiers: Otitis media type: unspecified Chronicity: acute Qualified Code(s): H66.90 - Otitis media, unspecified, unspecified ear Patient Disposition: Home Condition: Stable Instructions: Antibiotic Form Additional Instructions: can get elbow brace for tendonitis at any Pharmacy Patient Language: Venezuelan Prescriptions: New prednisone 20 mg tablet 20 mg PO BID Qty: 14 0RF amoxicillin 875 mg tablet 875 mg PO Q12H Qty: 20 0RF ibuprofen 600 mg tablet 600 mg PO TID PRN (Reason: fever or pain) Qty: 20 0RF No Action No Home Medications Follow-up/Referrals: Westley Soto MD [Primary Care Provider, Internal Medicine] Time of Disposition: 08:58
--- OUTSIDE RECORDS SUMMARY | 2025-06-01 09:13 | XMS_ITS | Clinical Summary ---
Author Organization [facility] Address [facility] [place] [address] Care Team Providers Care Cv/Cvn Cv Tsc System Operator Name Role Phone No, Physician Primary Care Provider [phone] Allergies No known active allergies Medications propranoloL [...] 04/14/2025 Assessment & Plan (04/14/2025 3:26 AM RANGE ECOLOGIST): Refers consuming 1 g amphetamines daily for the past 3 years, last use 04/13/2025 Librium taper Supportive management p.r.n. 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 on 04/13/2025 Librium taper Suboxone Supportive management Cellulitis 04/14/2025 Assessment & Plan (04/14/2025 3:26 AM RANGE ECOLOGIST): Localized to both distal forearms and hands, distal legs Blood culture x2 sets pending follow-up Oral antibiotics with Keflex and doxycycline Possible association with swelling of the same location Swelling 04/14/2025 Assessment & Plan (04/14/2025 3:26 AM RANGE ECOLOGIST): Localized to both hands and lower extremities [...] Department Care Team Description 04/13/2025 7:30 PM RANGE ECOLOGIST - 04/18/2025 10:20 AM RANGE ECOLOGIST [place] [address] Fernandez Valladares MD Sajjad, Sohaib, MD Polysubstance [...] declined 04/14/2025 How often do you attend caodaism or hinduism serv ices? Patient declined 04/14/2025 Do you belong to any clubs o r organizations such as caodaism groups, unions, fraternal or athletic groups, or [...] any time in the past 12 m [facility], were you homeless or living in a intermediate (including now)? Patient declined 04/14/2025 [facility] Utilities Answer Date Recorded In the past 12 months has e [employer], gas, oil, or water company threatened to [...] on file Legal Sex Female 1:10 PM RANGE ECOLOGIST Gender Identity Not on file Sexual Orientation Not on file Last Filed Vital Signs Vital Sign Reading Time Taken Comments Blood Pressure 111/88 04/18/2025 7:29 AM RANGE ECOLOGIST Pulse 60 04/18/2025 7:29 AM RANGE ECOLOGIST Temperature 36.6 C (97.9 F) 04/18/2025 7:29 AM RANGE ECOLOGIST Respiratory Rate 18 04/18/2025 7:29 AM RANGE ECOLOGIST Oxygen Saturation 100% 04/18/2025 7:29 AM RANGE ECOLOGIST Inhaled Oxygen Concentration - - Weight 73.5 kg (162 lb) 04/13/2025 10:49 PM RANGE ECOLOGIST Height 163.8 cm (5' 4.5) 04/13/2025 10:49 PM CS T Body Mass Index 27.38 04/13/2025 10:49 PM RANGE ECOLOGIST Plan of Treatment Health Maintenance Due Date [...] RNA, QUANTITATIVE, PCR Routine 04/15/2025 4:08 PM RANGE ECOLOGIST BLOOD CULTURE STAT 04/14/2025 2:35 PM RANGE ECOLOGIST BLOOD SMEAR REVIEW Routine 04/14/2025 10 :57 AM RANGE ECOLOGIST EGFR Routine 04/14/2025 10:57 AM RANGE ECOLOGIST DIFFERENTIAL AUTO Routine 04/14/2025 10: 57 AM RANGE ECOLOGIST PHOSPHORUS Routine 04/14/2025 10:57 AM RANGE ECOLOGIST MAGNESIUM Routine 04/14/2025 10:57 AM RANGE ECOLOGIST BASIC METABOLIC PANEL Routine 04/14/2025 10:57 AM RANGE ECOLOGIST CBC WITH AUTO DIFFERENTIAL Routine 04/14/2025 10:57 AM RANGE ECOLOGIST HEPATITIS PANEL, ACUTE STAT 10:57 AM RANGE ECOLOGIST RPR STAT 04/14/2025 10:57 AM RANGE ECOLOGIST HIV 1/2 ANTIBODY PLUS P24 ANTIGEN STAT 04/14/2025 10:57 AM RANGE ECOLOGIST BLOOD CULTURE STAT 04/14/2025 10:57 AM RANGE ECOLOGIST PRO B-TYPE NATRIURETIC PEPTIDE STAT 04/14/2025 1:30 AM RANGE ECOLOGIST CREATINE KINASE (CK), TOTAL STAT 04/14/2025 1:30 AM RANGE ECOLOGIST CRP (ACUTE PHASE) STAT 04/14/2025 1:3 0 AM RANGE ECOLOGIST HCG, BLOOD, QUANTITATIVE STAT 04/14/2025 1:30 AM RANGE ECOLOGIST DRUGS OF ABUSE SCREEN, URINE WITHOUT CONFIRMATION STAT 04/13/2025 2:13 PM RANGE ECOLOGIST URINALYSIS AND REFLEX TO MICROSCOPIC AND CULTURE STAT 04/13/2025 2:13 PM RANGE ECOLOGIST EGFR STAT 04/13/2025 2:01 PM RANGE ECOLOGIST DIFFERENTIAL AUTO STAT 04/13/2025 2:0 1 PM RANGE ECOLOGIST ETHANOL STAT 04/13/2025 2:01 PM RANGE ECOLOGIST COMPREHENSIVE METABOLIC PANEL STAT 04/13/2025 2:01 PM RANGE ECOLOGIST CBC WITH AUTO DIFFERENTIAL STAT 04/13/2025 2:01 PM RANGE ECOLOGIST from Last 3 Months Results * (ABNORMAL) Hepatitis C (HCV) RNA PCR, quantitative Blood (04/15/2025 4:08 PM RANGE ECOLOGIST) [facility] HCV RNA result Detected( A) [facility] Comment: The quantifiable range of this assay is 15 IU/mL to 100,000,000 IU/mL (1.18 log IU/mL to 8.00 log IU/mL). Testing was performed by the [employer]00 HCV Test ([employer] Testing performed at [facility] Current Interpretive Data was last revised on 2021 Testing performed by: [facility], [address] [place]., [address] HCV RNA IU/mL 7,390,000 IUnits/mL BETH Comment:Testing performed by : [facility], [address] [place]., [address] HCV RNA log IU/mL 6.87 log IUnits/mL [facility] Comment:Testing performed by : [facility], [address] [place]., [address] Blood 04/15/2025 4:08 PM RANGE ECOLOGIST 04/15/2025 9:01 PM RANGE ECOLOGIST Delta Champagne MD LAB MICROBIOLOGY - GENERAL MONTROSEEllen [facility] Final Result [facility] [address] [facility] Department [place] [address] [facility] * Blood culture Blood (04/14/2025 2:35 PM RANGE ECOLOGIST) [facility] Report Final Report: No growth Comment:Testing performed by : [facility], [address] [place]., [address] Blood 04/14/2025 2:35 PM RANGE ECOLOGIST 04/14/2025 6:06 PM RANGE ECOLOGIST Narrative BETH - 04/19/2025 7:00 AM RANGE ECOLOGIST Collection->Peripheral 1. Blood cultures are incubated for [...] performance characteristics have been verified by the [facility] Microbiology Laboratory. For questions about this culture, contact the Microbiology Laboratory at [phone]. Interpretive data was last revised on 24. Fernandez Valladares MD LAB MICROBIOLOGY - GENERAL OR DERABLES Final Result Performing Organization Address [facility] Co de Phone Number [address] [place] [address] * Blood smear review (04/14/2025 10:57 AM RANGE ECOLOGIST) RBC morphology Normal Platelet estimate Adequate [facility] Blood 04/14/2025 10:5 7 AM RANGE ECOLOGIST 04/14/2025 11:32 AM RANGE ECOLOGIST Fernandez Valladares MD LAB BLOOD ORDERABLES Final Re sult Performing Organization Address [facility] de Phone Number [address] [place] [address] * eGFR (04/14/2025 10:57 AM RANGE ECOLOGIST) eGFR 74 >=60 mL/min/1. 73 m2 Comment: [...] reviewed 2021. Blood 04/14/2025 10:5 7 AM RANGE ECOLOGIST 04/14/2025 11:32 AM RANGE ECOLOGIST Fernandez Valladares MD LAB BLOOD ORDERABLES Final Re sult [facility] [address] [facility] Department [place] [address] * Differential, auto (04/14/2025 10:57 AM RANGE ECOLOGIST) Neutrophil abs 2.95 1.50 - 6.50 K/cumm Imm gran abs 0.03 0.00 - 0.10 K/cumm [facility] Lymphocyte abs 1.74 0.80 - 3.30 K/cumm [facility] Monocyte abs 0.25 0.20 - 0.80 K/cumm [facility] Eosinophil abs 0.13 0.00 - 0.50 K/cumm [facility] Basophil abs 0.04 0.00 - 0.10 K/cumm [facility] Neutrophil pct 57.3 % [facility] Comment: Interpretive Data Percent cell count reference ranges are not reported, since discordance with absolute values may lead to misinterpretation of CBC data. Current Interpretive Data was last revised on 2017. Imm gran pct 0.6 % [facility] Comment: Interpretive Data Percent cell count reference ranges are not reported, since discordance with absolute values may lead to misinterpretation of CBC data. Current Interpretive Data was last revised on 2017. Lymphocyte pct 33.9 % [facility] Comment: Interpretive Data Percent cell count reference ranges are not reported, since discordance with absolute values may lead to misinterpretation of CBC data. Current Interpretive Data was last revised on 2017. Monocyte pct 4.9 % [facility] Comment: Interpretive Data Percent cell count reference ranges are not reported, since discordance with absolute values may lead to misinterpretation of CBC data. Current Interpretive Data was last revised on 2017. Eosinophil pct 2.5 % [facility] Comment: Interpretive Data Percent cell count reference ranges are not reported, since discordance with absolute values may lead to misinterpretation of CBC data. Current Interpretive Data was last revised on 2017. Basophil pct 0.8 % [facility] Comment: Interpretive Data Percent cell count reference ranges are not reported, since discordance with absolute values may lead to misinterpretation of CBC data. Current Interpretive Data was last revised on 2017. Blood 04/14/2025 10:5 7 AM RANGE ECOLOGIST 04/14/2025 11:32 AM RANGE ECOLOGIST us Fernandez Valladares MD LAB BLOOD ORDERABLES Final Re sult Performing Organization Address [facility] Co de Phone Number [address] [place] [address] * HIV 1/2 Antibody plus p24 Antigen Blood (04/14/2025 10:57 AM RANGE ECOLOGIST) HIV 1/2 ab + p24 ag Nonreactive Nonreactive Comment:Nonreactive for HIV- 1 antigen and HIV-1/HIV-2 antibodies. No laboratory evidence of HIV infection. If acute HIV infection is suspected, consider testing for HIV-1 RNA. Current interpretive data was last revised on 22. Blood 04/14/2025 10:5 7 AM RANGE ECOLOGIST 04/14/2025 11:32 AM RANGE ECOLOGIST us Fernandez Valladares MD LAB MICROBIOLOGY - GENERAL OR DERABLES Final Result Performing Organization Address City/[facility]/ZIP Co de Phone Number [facility] [address] [facility] [employer] [address] * CBC with auto differential (04/14/2025 10:57 AM RANGE ECOLOGIST) [facility] WBC 5.14 3.80 - 9.90 K/cumm Hgb 14.7 11.9 - 15.5 g/dL [facility] Hct 43.9 35.6 - 45.5 % [facility] Plt 221 150 - 400 K/cumm [facility] MPV 10.0 9.1 - 12.3 fL [facility] RBC 4.86 3.90 - 5.20 M/cumm [facility] MCV 90.3 81.3 - 96.4 fL [facility] MCH 30.2 27.1 - 33.3 pg [facility] MCHC 33.5 32.3 - 35.7 g/dL [facility] RDW CV 14.0 11.1 - 14.9 % [facility] RDW SD 46.9 35.7 - 48.1 fL [facility] NRBC abs 0.00 0.00 - 0.01 K/cumm [facility] Blood 04/14/2025 10:5 7 AM RANGE ECOLOGIST 04/14/2025 11:32 AM RANGE ECOLOGIST us Fernandez Valladares MD LAB BLOOD ORDERABLES Edited R esult - Final [facility] [place] [address] [facility] Department [place] [address] * (ABNORMAL) Hepatitis panel, acute Blood (04/14/2025 10:57 AM RANGE ECOLOGIST) [facility] Hep A IgM Nonreactive Nonreactive Comment: Interpretive Data: If Hep A IgM Ab is reported as Equivocal, a new sample should be drawn in two weeks for testing. Current interpretive data was last revised on 19. Hep B core IgM Nonreactive Nonreactive [facility] Comment: Interpretive Data If HepB Core IgM Ab is reported as Equivocal, a new sample should be drawn in two weeks for testing. Current interpretive data was last revised on 19. Hep C Ab Reactive(A) Nonreactive [facility] Comment: Reactive for HCV antibodies. This may [...] last revised on 2019. HepBsAg Nonreactive Nonreactive [facility] Blood 04/14/2025 10:5 7 AM RANGE ECOLOGIST 04/14/2025 11:32 AM RANGE ECOLOGIST us Fernandez Valladares MD LAB MICROBIOLOGY - GENERAL OR DERABLES Final Result Performing Organization Address [facility] de Phone Number [address] [place] [employer] [address] * RPR Blood (04/14/2025 10:57 AM RANGE ECOLOGIST) RPR Nonreactive Nonreactive Comment:Testing performed by : [facility], [address] [place] [address]., [id number] Blood 04/14/2025 10:5 7 AM RANGE ECOLOGIST 04/14/2025 3:31 PM RANGE ECOLOGIST us Fernandez Valladares MD LAB MICROBIOLOGY - GENERAL OR DERABLES Final Result Performing Organization Address City/[facility] Co de Phone Number [address] [address] * Blood culture Blood (04/14/2025 10:57 AM RANGE ECOLOGIST) Report Final Report: No growth Comment:Testing performed by : [facility], [address] [place] [address]., [id number] Blood 04/14/2025 10:5 7 AM RANGE ECOLOGIST 04/14/2025 1:08 PM RANGE ECOLOGIST Narrative BETH - 04/18/2025 4:00 PM RANGE ECOLOGIST Received only aerobic blood culture bottle Collection->Peripheral [...] performance characteristics have been verified by the [facility] Microbiology Laboratory. For questions about this culture, contact the Microbiology Laboratory at [phone]. Interpretive data was last revised on 24. Fernandez Valladares MD LAB MICROBIOLOGY - GENERAL OR DERABLES Final Result Performing Organization Address City/[facility]/ZIP Co de Phone Number [address] [place] [employer] [address] * Phosphorus (04/14/2025 10:57 AM RANGE ECOLOGIST) Pathologist [facility] Phosphorus, pl 3.4 2.3 - 4.5 mg/dL Blood 04/14/2025 10:5 7 AM RANGE ECOLOGIST 04/14/2025 11:32 AM RANGE ECOLOGIST Fernandez Valladares MD LAB BLOOD ORDERABLES Final Re sult Performing Organization Address [facility]/ZIP Co de Phone Number [address] Department [place] [address] * Magnesium (04/14/2025 10:57 AM RANGE ECOLOGIST) Pathologist [facility] Magnesium 1.9 1.4 - 2.5 mg/dL Blood 04/14/2025 10:5 7 AM RANGE ECOLOGIST 04/14/2025 11:32 AM RANGE ECOLOGIST Fernandez Valladares MD LAB BLOOD ORDERABLES Final Re sult Performing Organization Address [facility] Co de Phone Number [address] [place] [address] * Basic metabolic panel (04/14/2025 10:57 AM RANGE ECOLOGIST) [facility] Sodium 140 135 - 145 mmol/L Potassium, pl 3.9 3.3 - 4.9 mmol/L [facility] Chloride 102 97 - 110 mmol/L [facility] CO2 26 22 - 32 mmol/L [facility] Anion gap 12 2 - 15 mmol/L [facility] BUN 12 6 - 25 mg/dL [facility] Creatinine 0.97 0.60 - 1.10 mg/dL [facility] Glucose 103 70 - 199 mg/dL [facility] Comment: Interpretive Data Fasting glucose >/= 126 [...] 2022. Calcium 9.7 8.5 - 10.3 mg/dL [facility] Blood 04/14/2025 10:5 7 AM RANGE ECOLOGIST 04/14/2025 11:32 AM RANGE ECOLOGIST Fernandez Valladares MD LAB BLOOD ORDERABLES Final Re sult Performing Organization Address City/[facility] Co de Phone Number [address] [place] [address] * Pro B-type natriuretic peptide (04/14/2025 1:30 AM RANGE ECOLOGIST) NT-proBNP <36 <=300 pg/mL Comment: Interpretive Comments: [...] Revised Date: 2018. Blood 04/14/2025 1:30 AM RANGE ECOLOGIST 04/14/2025 1:36 AM RANGE ECOLOGIST us Fernandez Valladares MD LAB BLOOD ORDERABLES Final Re sult [facility] [address] [facility] Department [place] [address] * CRP (acute phase) (04/14/2025 1:30 AM RANGE ECOLOGIST) CRP 9.9 <=10.0 mg/L Blood 04/14/2025 1:30 AM RANGE ECOLOGIST 04/14/2025 1:36 AM RANGE ECOLOGIST us Fernandez Valladares MD LAB BLOOD ORDERABLES Final Re sult Performing Organization Address [facility] de Phone Number BETH [address] [address] * hCG, blood, quantitative (04/14/2025 1:30 AM RANGE ECOLOGIST) Pathologist [facility] hCG, quant <5.0 0.0 - 5.0 IUnits/L Comment: Interpretive Data Male: < 5 IU/L Non- premenopausal Female: <5 IU/L The [employer] hCG Beta Quant assay procedure was used. Results from different manufacturers or methods may not be comparable. Serial testing should be performed using the same method. Interpretive Data was last revised on 2023 Blood 04/14/2025 1:30 AM RANGE ECOLOGIST 04/14/2025 1:36 AM RANGE ECOLOGIST us Fernandez Valladares MD LAB BLOOD ORDERABLES Final Re sult Performing Organization Address [facility] de Phone Number [address] [address] * Creatine kinase (CK), total (04/14/2025 1:30 AM RANGE ECOLOGIST) [facility] CK 61 30 - 200 Units/L Blood 04/14/2025 1:30 AM RANGE ECOLOGIST 04/14/2025 1:36 AM RANGE ECOLOGIST us Fernandez Valladares MD LAB BLOOD ORDERABLES Final Re sult Performing Organization Address [facility] Co de Phone Number [address] [address] * (ABNORMAL) Urinalysis reflex to microscopic and culture Urine (04/13/2025 2:13 PM RANGE ECOLOGIST) Pathologist [facility] Color, ur Yellow Yellow Clarity, ur Clear Clear [facility] Specific gravity, ur 1.024 1.003 - 1.030 [facility] pH, urine 8.0 [facility] Comment: Interpretive Data U rine pH is affected by diet, medications, systemic acid-base disturbances, and renal tubular function. pH may affect urinary stone formation. For example, urine pH below 6.0 may help reduce the tendency for calcium phosphate stones and pH greater than 6.0 may reduce the tendency for uric acid stone formation. Source: [facility] Current Interpretive Data was last revised on 2017 Protein, ur ql Negative Negative [facility] Glucose, ur ql Negative Negative [facility] Ketones, ur Negative Negative [facility] Bilirubin, ur Negative Negative [facility] Blood, ur Negative Negative [facility] Urobilinogen, ur 2.0(A) <2.0 mg/dL [facility] Nitrite, ur Negative Negative [facility] Leukocyte esterase, ur Negative Negative [facility] UA reflex comment Reflex conditions for microscopic UA and culture not met. [facility] Urine 04/13/2025 2:13 PM RANGE ECOLOGIST 04/13/2025 2:18 PM RANGE ECOLOGIST Britta QUILES LAB MICROBIOLOGY - GENERAL OR DERABLES Final Result [facility] [address] [facility] Department [place] [address] * (ABNORMAL) Drugs of Abuse Screen, Urine without Confirmation (04/13/2025 2:13 PM RANGE ECOLOGIST) Amphetamine, ur Screen Positive, presumptive (A) CutOff 500ng/mL Comment: Interpretive Data - Amphetamines: Samples containing greater than 500 ng/mL d-methamphetamine or other cross-reacting amphetamine compounds are reported as positive. Amphetamine immunoassays are subject to significant false positive rates due to cross-reactivity of non-amphetamine drugs. Confirmatory testing required for definitive results. Current Interpretive Data was last reviewed 2023. Barbiturates, ur Not Detected CutOff 200ng/mL [facility] Comment: Interpretive Data - Barbiturates: Samples containing greater than 200 ng/mL secobarbital or other cross-reacting barbiturate compounds are reported as positive. False positive and false negative results are possible. Confirmatory testing required for definitive results. Current Interpretive Data was last reviewed 2023. Benzodiazepines, ur Not Detected CutOff 100ng/mL [facility] Comment: Interpretive Data - Benzodiazepines: Samples containing greater than 100 ng/mL nordiazepam or other cross-reacting compounds are reported as positive. False positive and false negative results are possible. Confirmatory testing required for definitive results. Current Interpretive Data was last reviewed 2023. Cannabinoids, ur Not Detected CutOff 50 ng/mL [facility] Comment: Interpretive Data - Cannabinoids: Samples containing greater than 50 ng/mL delta-9 THC -COOH or other cross- reacting compounds are reported as positive. False positive and false negative results are possible. Confirmatory testing required for definitive results. Current Interpretive Data was last reviewed 2023. Cocaine, ur Not Detected CutOff 150ng/mL [facility] Comment: Interpretive Data - Cocaine: Samples containing greater than 150 ng/mL benzoylecgonine or other cross- reacting compounds are reported as positive. False positive and false negative results are possible. Confirmatory testing required for definitive results. Current Interpretive Data was last reviewed 2023. Fentanyl, Ur Screen Positive, presumptive (A) CutOff 5 ng/mL [facility] Comment: Interpretive Data - Fentanyl: Samples containing greater than 5 ng/mL norfentanyl, fentanyl, or other cross-reacting fentanyl compounds are reported as positive. False positive and false negative results are possible. Confirmatory testing required for definitive results. Current Interpretive Data was last reviewed 2023. Methadone, ur Not Detected CutOff 300ng/mL [facility] Comment: Interpretive Data - Methadone: Samples containing greater than 300 ng/mL d,l-methadone or other cross-reacting compounds are reported as positive. False positive and false negative results are possible. Confirmatory testing required for definitive results. Current Interpretive Data was last reviewed 2023. Opiates, ur Not Detected CutOff 300ng/mL [facility] Comment: Interpretive Data - Opiates: Samples containing greater than 300 ng/mL morphine or other cross-reacting compounds are reported as positive. False positive and false negative results are possible. Confirmatory testing required for definitive results. Current Interpretive Data was last reviewed 2023. Oxycodone, ur Not Detected CutOff 100ng/mL [facility] Comment: Interpretive Data - Oxycodone: Samples containing [...] revised on 2017. Urine 04/13/2025 2:13 PM RANGE ECOLOGIST 04/13/2025 2:18 PM RANGE ECOLOGIST Narrative [facility] - 04/13/2025 3:00 PM RANGE ECOLOGIST Drug of Abuse screening is performed by immunoassay for medical purposes only. This is not to be used for Pain Management purposes. Britta QUILES LAB URINE ORDERABLES Final Re sult [facility] [address] [facility] Department [place] [address] * eGFR (04/13/2025 2:01 PM RANGE ECOLOGIST) eGFR 84 >=60 mL/min/1. 73 m2 Comment: [...] last reviewed 2021. Blood 04/13/2025 2:01 PM RANGE ECOLOGIST 04/13/2025 2:06 PM RANGE ECOLOGIST us Britta QUILES LAB BLOOD ORDERABLES Final Re sult [facility] [address] [facility] Department of Laboratories [place], [place] [id number] * Differential, auto (04/13/2025 2:01 PM RANGE ECOLOGIST) Pathologist [facility] Neutrophil abs 3.87 1.50 - 6.50 K/cumm Imm gran abs 0.01 0.00 - 0.10 K/cumm [facility] Lymphocyte abs 1.46 0.80 - 3.30 K/cumm [facility] Monocyte abs 0.22 0.20 - 0.80 K/cumm [facility] Eosinophil abs 0.16 0.00 - 0.50 K/cumm [facility] Basophil abs 0.05 0.00 - 0.10 K/cumm [facility] Neutrophil pct 67.0 % [facility] Comment: Interpretive Data Percent cell count reference ranges are not reported, since discordance with absolute values may lead to misinterpretation of CBC data. Current Interpretive Data was last revised on 2017. Imm gran pct 0.2 % [facility] Comment: Interpretive Data Percent cell count reference ranges are not reported, since discordance with absolute values may lead to misinterpretation of CBC data. Current Interpretive Data was last revised on 2017. Lymphocyte pct 25.3 % [facility] Comment: Interpretive Data Percent cell count reference ranges are not reported, since discordance with absolute values may lead to misinterpretation of CBC data. Current Interpretive Data was last revised on 2017. Monocyte pct 3.8 % [facility] Comment: Interpretive Data Percent cell count reference ranges are not reported, since discordance with absolute values may lead to misinterpretation of CBC data. Current Interpretive Data was last revised on 2017. Eosinophil pct 2.8 % [facility] Comment: Interpretive Data Percent cell count reference ranges are not reported, since discordance with absolute values may lead to misinterpretation of CBC data. Current Interpretive Data was last revised on 2017. Basophil pct 0.9 % [facility] Comment: Interpretive Data Percent cell count reference ranges are not reported, since discordance with absolute values may lead to misinterpretation of CBC data. Current Interpretive Data was last revised on 2017. Blood 04/13/2025 2:01 PM RANGE ECOLOGIST 04/13/2025 2:06 PM RANGE ECOLOGIST Britta QUILES LAB BLOOD ORDERABLES Final Re sult [facility] [address] [facility] Department [place] [address] * (ABNORMAL) CBC with auto differential (04/13/2025 2:01 PM RANGE ECOLOGIST) Pathologist [facility] WBC 5.77 3.80 - 9.90 K/cumm Hgb 13.8 11.9 - 15.5 g/dL [facility] Hct 41.4 35.6 - 45.5 % [facility] Plt 284 150 - 400 K/cumm [facility] MPV 9.0(L) 9.1 - 12.3 fL [facility] RBC 4.64 3.90 - 5.20 M/cumm [facility] MCV 89.2 81.3 - 96.4 fL [facility] MCH 29.7 27.1 - 33.3 pg [facility] MCHC 33.3 32.3 - 35.7 g/dL [facility] RDW CV 14.0 11.1 - 14.9 % [facility] RDW SD 45.5 35.7 - 48.1 fL [facility] NRBC abs 0.00 0.00 - 0.01 K/cumm [facility] Blood 04/13/2025 2:01 PM RANGE ECOLOGIST 04/13/2025 2:06 PM RANGE ECOLOGIST Britta Bernard OR LAB BLOOD ORDERABLES Final Re sult Performing Organization Address [facility]/ZIP Co de Phone Number BETH [address] [address] * Ethanol (04/13/2025 2:01 PM RANGE ECOLOGIST) Ethanol <10 <=10 mg/dL Comment: Interpretive Data Legal limit of intoxication > or = 80 mg/dL Levels > or = 400 mg/dL are potentially TOXIC. Current interpretive data was last revised on 2018. Blood 04/13/2025 2:01 PM RANGE ECOLOGIST 04/13/2025 2:06 PM RANGE ECOLOGIST [facility] LAB BLOOD ORDERABLES Final Re sult Performing Organization Address [facility] Co de Phone Number [id number] [address] * Comprehensive metabolic panel (04/13/2025 2:01 PM RANGE ECOLOGIST) Pathologist [facility] Sodium 139 135 - 145 mmol/L Potassium, pl 3.9 3.3 - 4.9 mmol/L [facility] Chloride 102 97 - 110 mmol/L [facility] CO2 27 22 - 32 mmol/L [facility] Anion gap 10 2 - 15 mmol/L [facility] BUN 8 6 - 25 mg/dL [facility] Creatinine 0.88 0.60 - 1.10 mg/dL [facility] Glucose 123 70 - 199 mg/dL [facility] Comment: Interpretive Data Fasting glucose >/= 126 [...] 2022. Calcium 9.5 8.5 - 10.3 mg/dL [facility] Bilirubin, total 0.4 0.1 - 1.2 mg/dL [facility] Protein, pl 7.2 6.5 - 8.5 g/dL [facility] Albumin 3.8 3.5 - 5.0 g/dL [facility] Alk phos 95 40 - 130 Units/L [facility] ALT 18 7 - 45 Units/L [facility] AST 25 10 - 45 Units/L [facility] Blood 04/13/2025 2:01 PM RANGE ECOLOGIST 04/13/2025 2:06 PM RANGE ECOLOGIST us Britta QUILES LAB BLOOD ORDERABLES Final Re sult [facility] [address] [facility] Department [place] [address] from Last 3 Months Insurance [facility] Advance Directives For more information, please contact: [phone] * LIMITED - No CPR (Latest Code Status on File) Date Activated Date Inactivated Comments 04/14/2025 12:56 AM 04/18/2025 2:26 PM Question Answer Comments Provide aggressive medical m anagement before a full cardiopulmonary arrest occurs. Use antibiotics, IV Fluids, and medical treatment unless specifically selected below: No intubation Care Teams Cv/Cvn Cv Tsc System Operator Relationship Specialty Start Date End Date No, Physician PCP - General 04/13/25
--- OUTSIDE RECORDS SUMMARY | 2025-06-01 09:13 | XMS_ITS | Clinical Summary ---
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
--- OUTSIDE RECORDS SUMMARY | 2025-06-01 09:13 | XMS_ITS ---
Author Organization Unknown Address [address] [place] [phone] Phone Care Team Providers Care Photographer'S Assistant Name Role Phone ANA ARAIZA Attending Unavailable NO PCP Primary Unavailable Results MAGNESIUM - Collect Date/Ankur e: 03/22/2025 06:40 [facility] ID: [id number] [address] [place] [address], [phone] LOINC: 25231-0 Test Value Unit Reference Range Code Code System Flag MAGNESIUM 1.6 mg/dL L=1.6 H=2.3 31709-8 LOINC PROTIME - Collect Date/Time: 03/22/2025 06:40 [facility] ID: [id number] [address] [place] [address], [phone] LOINC: 65102-3 Test Value Unit Reference Range Code Code System Flag PT 9.9 Sec L=9.6 H=11.5 47747-5 LOINC INR 0.9 Sec L=0.9 H=1.1 03418-2 LOINC PTT - Collect Date/Time: 06:40 [facility] ID: [id number] [address] [place] [address], [phone] LOINC: 36953-8 Test Value Unit Reference Range Code Code System Flag PTT 27.8 Sec L=22.7 H=30.3 TROPONIN LEVEL - Collect Ashu e/Time: 03/22/2025 06:40 [facility] ID: [id number] [address] [place], [place], [phone] LOINC: 93587-1 Test Value Unit Reference Range Code Code System Flag TROPONIN < 0.012 ng/mL L=0.000 H=0.033 44828-9 LOINC CBC W/ DIFF - Collect Date/T charles: 03/22/2025 06:40 [facility] ID: [id number] [address] [place], [place], [phone] LOINC: 14426-6 Test Value Unit Reference Range Code Code System Flag WBC 8.1 10^3uL L=4.0 H=10.5 RBC 4.52 10^6uL L=4.20 H=5.40 HEMOGLOBIN 13.6 g/dL L=12.0 H=16.0 718-7 LOINC HEMATOCRIT 39.7 VOL% L=37.0 H=47.0 4544-3 LOINC MCV 87.8 fL L=81.0 H=99.0 MCH 30.1 pg L=27.0 H=32.0 MCHC 34.3 g/dL L=32.0 H=36.0 PLATELETS 290 10^3uL L=100 H=400 27633-7 LOINC RDW 13.4 % L=11.7 H=15.5 %GRAN 58.5 % L=40.0 H=70.0 19754-3 LOINC %LYMPH 31.8 % L=20.0 H=45.0 736-9 LOINC %MONO 6.8 % L=2.0 H=10.0 89493-5 LOINC %EOS 2.1 % L=0.0 H=6.0 713-8 LOINC %BASO 0.6 % L=0.0 H=3.0 706-2 LOINC #NEUT 4.8 10^3uL L=1.9 H=7.6 84907-5 LOINC #LYMPH 2.6 10^3uL L=0.9 H=4.9 20490-5 LOINC #MONO 0.6 10^3uL L=0.1 H=0.9 80224-8 LOINC #EOS 0.2 10^3uL L=0.0 H=0.6 712-0 LOINC #BASO 0.05 10^3uL L=0.00 H=0.10 83573-3 LOINC #IM GRANS 0.0 10^3uL L=0.0 H=7.0 46710-6 LOINC %IM GRANS 0.2 % L=0.0 H=5.0 85257-9 LOINC %NRB 0.0 L=0.0 H=0.2 22576-8 LOINC #NRB 0.000 L=0.000 H=0.012 56959-3 LOINC MANUAL DIFF NOT INDICATED RBC MORPH NOT INDICATED COMPREHENSIVE METABOLIC PANE L - Collect Date/Time: 03/22/2025 06:40 [facility] ID: [id number] [address] [place], [place], [phone] LOINC: 36308-6 Test Value Unit Reference Range Code Code System Flag FASTING UNKNOWN BUN 10 mg/dL L=7 H=20 3094-0 LOINC CREATININE 1.00 mg/dL L=0.52 H=1.04 2160-0 LOINC AGE 45 11745-6 LOINC eGFR 72 GLUCOSE 116 mg/dL L=74 H=106 2345-7 LOINC H SODIUM 140 mmol/L L=132 H=144 2951-2 LOINC POTASSIUM 3.4 mmol/L L=3.5 H=5.1 2823-3 LOINC L CHLORIDE 103 mmol/L L=98 H=107 2075-0 LOINC CO2 30.0 mmol/L L=22.0 H=30.0 2028-9 LOINC ANION GAP 10 L=10 H=20 07254-3 LOINC OSMOLALITY 290 mOs/kG L=280 H=296 32617-8 LOINC BUN/CREAT 10.0 3097-3 LOINC CALCIUM 9.2 mg/dL L=8.3 H=10.5 04397-4 LOINC AST 26 U/L L=15 H=46 1920-8 LOINC ALT 17 U/L L=9 H=72 1742-6 LOINC ALKALINE PHOS 80 U/L L=38 H=126 6768-6 LOINC TOTAL BILI 0.3 mg/dL L=0.2 H=1.3 1975-2 LOINC ALBUMIN 4.2 G/dL L=3.5 H=5.0 1751-7 LOINC TOTAL PROTEIN 7.4 g/L L=6.3 H=8.2 2885-2 LOINC A/G RATIO 1.3 78297-0 LOINC CHEST 1V - Completed: 2024 06:53 LOINC: \TM00\\12PI\\DRAo\\BM09\ \MRHo\ [address] [address] ---------NAME--------- NUMBER SEX AGE ADMIT DISC. XRAY# F/C TYPE JUAN [id number] F 45 03/22/25 70773 P E.R. DATE OF : 1980 M/R# [id number] PH#: [phone] ED-34 \MRx\ LOCATION: TRANSCRIBED: 03/22/25 7:03 CHEST 1V [id number] COMPLETED:03/22/25 6:53 CLP [id number] Chest Pain PHYSICIAN: KINGSLEY R A D I O L O G Y R E P O R T CHEST RADIOGRAPH Indication: Chest Pain Technique: Single frontal view of the chest was obtained COMPARISON: None FINDINGS: Lines and Tubes: None Lungs: Clear Pleura: No effusion. No pneumothorax. Cardiomediastinal contours: Unremarkable Bones: Unremarkable IMPRESSION: 1. No acute disease. DIRECTOR/FINANCE \ITLo\ \UNDo\ \UNDx\ \ITLx\ Reviewed and Electronically [...] Personal Care Team Section Imaging Narrative Notes [facility] 03/22/2025 07:[address] [address] ---------NAME--------- NUMBER SEX AGE ADMIT DISC. XRAY# F/C TYPE JUAN [id number] F 45 03/22/25 61171 P E.R. DATE OF : 1980 M/R# [id number] #: [phone] ED-34 LOCATION: TRANSCRIBED: 03/22/25 7:03 CHEST 1V 17257 COMPLETED:03/22/25 6:53 CLP 10179 Chest Pain PHYSICIAN: KINGSLEY RADIOLOGY REPORT CHEST RADIOGRAPH Indication: Chest Pain Technique: Single frontal view of the chest was obtained COMPARISON: None FINDINGS: Lines and Tubes: None Lungs: Clear Pleura: No effusion. No pneumothorax. Cardiomediastinal contours: Unremarkable Bones: Unremarkable IMPRESSION: 1. No acute disease. DIRECTOR/FINANCE Reviewed and Electronically Signed by: Pedro Borja MD Signed Date: 03/22/25 07:03
--- OUTSIDE RECORDS SUMMARY | 2025-06-01 09:13 | XMS_ITS | Clinical Summary ---
Author Organization [facility] Address [address] [place] [address] Care Team Providers Care Inspector Missile Name Role Phone Unavailable Primary Care Provider Unavailabl e Source Comments [facility],non-owned Affiliates and Associated Physician Practices is amultiple site organization consisting of ambulatory clinics and hospital sitesin [place], [place], [place] and [place]. This disclosure is being madepursuant to the Care Everywhere program and may not contain all information available regarding this patient. Last updated 18.[facility] Active Problems Patient Care Coordination No te [...]
--- OUTSIDE RECORDS SUMMARY | 2025-06-01 09:13 | XMS_ITS | Encounter Summary ---
Author Organization [facility] Address [facility] [place] [address] Care Team Providers Care Clinical Studies Specialist Name Role Phone None, Provider Primary Care Provider Unavaila ble Encounter Details Date Type Department Care Team ([facility] st Contact Info) Description 11/14/2018 Abstract SFL CONVERSION [address] [address] , Generic Conversion, Social History Tobacco Use Types Packs/Day Years Used Date Smoking Tobacco: Never Assessed Comments Unknown Sex and Gender Information Value Date Recorded Sex Assigned at Not on file 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
== END 2025-06-01 09:05 | disposition home or self-care (01) ==
PROVIDERS: Emergency Provider Family Medicine; Referring Provider Family Medicine
DX: M77.8 Other enthesopathies, not elsewhere classified (principal); H66.90 Otitis media, unspecified, unspecified ear; F17.210 Nicotine dependence, cigarettes, uncomplicated
CPT/HCPCS: 99283